=== PATIENT | female | born 1950 | race Caucasian/White ===

== ENCOUNTER 2017-03-31 16:40 | Emergency (ER) | payer MEDICARE, MEDICAID ==
[~2017-03-31] VITALS: Ht 172.7 cm; Wt 63.5 kg
[~2017-03-31 16:40] MED LIST: ASPI-1145 PO; ESOM20CA PO; NARA1TAB PO; NORCO5 PO
[2017-03-31 16:50] VITALS: BP_SYST 135
[2017-03-31] MEDS ORDERED: methylPREDNISolone SOD SUCC/PF 62.5 MG/ML VIAL IVP ONE (17:30)
[2017-03-31] MEDS ORDERED: ASPIRIN 325 MG TABLET PO ONE (17:30)
[2017-03-31] MEDS ORDERED: IPRATROPIUM BROM 0.5 MG/2.5 ML VIAL.NEB (ATROVENT) INH ONE (17:30)
[2017-03-31] MEDS ORDERED: MAGNESIUM SULFATE 50 ML IV ONE (17:30)
[2017-03-31] MEDS ORDERED: ALBUTEROL SULFATE 0.083% 2.5 MG/3 ML VIAL.NEB INH ONE (17:30)
[2017-03-31 17:40] LABS: MEAN CORPUSCULAR HEMOGLOBIN 28 pg (27-31); WHITE BLOOD COUNT (AUTO) 11.8 K/uL (4.8-10.8)
[2017-03-31 17:45] LABS: HEMATOCRIT 41.6 % (36-48); HEMOGLOBIN 13.1 g/dL (12.0-16.0); MEAN CORPUSCULAR HGB CONC 32 % (32-36); MEAN CORPUSCULAR VOLUME 89 fL (79.0-98.0); RED BLOOD CELL COUNT(AUTO) 4.69 MIL/uL (4.2-6.2); RED CELL DISTRIBUTION WIDTH 18.5 % (9.0-15.0)
[2017-03-31 17:46] LABS: CALCIUM 9.1 mg/dL (8.4-11.0); CREATININE 0.84 mg/dL (0.55-1.30); INR 0.9 (0.8-1.2); POTASSIUM 4.6 mmol/L (3.5-5.1); PROTHROMBIN TIME 10.2 SECS (9.5-12.5)
[2017-03-31 17:51] LABS: TOTAL BILIRUBIN 0.2 mg/dL (0.0-1.0); TOTAL PROTEIN, SERUM 7.9 g/dL (6.4-8.3)
[2017-03-31 17:53] LABS: PLATELET COUNT (AUTO) 799 K/uL (130-430)
[2017-03-31 18:40] VITALS: BP_SYST 123
[2017-03-31 18:40] LABS: ATYPICAL LYMPHOCYTES % 0 % (0-0); BAND % (MANUAL) 0 % (0-6); BASOPHILS % (MANUAL) 0 % (0-2); EOSINOPHILS % (MANUAL) 0 % (0-7); LYMPHOCYTES % (MANUAL) 8 % (20-46); MONOCYTES % (MANUAL) 2 % (0-11)
== END 2017-03-31 18:39 | disposition home or self-care (01) ==
LOC: SED 16:40
DX: R06.02 Shortness of breath (principal); F17.210 Nicotine dependence, cigarettes, uncomplicated; J45.909 Unspecified asthma, uncomplicated; K21.9 Gastro-esophageal reflux disease without esophagitis
CPT/HCPCS: 36415; 71010; 80053; 83880; 84484; 85007; 85027; 85610; 85730; 93005; 96365; 96375; 99285; J2930; J3475

== ENCOUNTER 2017-04-28 12:06 | Inpatient (IN) | payer MEDICAID, MEDICARE ==
[~2017-04-28] VITALS: Ht 172.7 cm; Wt 59.0 kg
[2017-04-28 12:06] VITALS: BP_SYST 135
[2017-04-28] MEDS ORDERED: PROCHLORPERAZINE EDISYLATE 10 MG/2 ML VIAL IVP ONE (12:30)
[2017-04-28] MEDS ORDERED: methylPREDNISolone SOD SUCC/PF 62.5 MG/ML VIAL IVP ONE (12:30)
[2017-04-28] MEDS ORDERED: ALBUTEROL SULFATE 0.083% 2.5 MG/3 ML VIAL.NEB INH ONE (12:30)
[2017-04-28] MEDS ORDERED: IPRATROPIUM BROM 0.5 MG/2.5 ML VIAL.NEB (ATROVENT) INH ONE (12:30)
[2017-04-28] MEDS ORDERED: NITROGLYCERIN 1 INCH (GM) OINT. TD ONE (12:30)
[2017-04-28] MEDS ORDERED: MAGNESIUM SULFATE 50 ML IV ONE (12:30)
[2017-04-28] MEDS ORDERED: ASPIRIN 325 MG TABLET PO ONE (12:30)
[2017-04-28] MEDS ORDERED: NACL 0.9% 1,000 ML IV ONE (12:30)
[2017-04-28 13:02] LABS: BASOPHILS # (AUTO) 0.4 K/uL (0.0-0.2); BASOPHILS % (AUTO) 4.3 % (0.0-2.0); EOSINOPHILS % (AUTO) 0.1 % (0.0-4.0); HEMATOCRIT 38.2 % (36-48); HEMOGLOBIN 12.3 g/dL (12.0-16.0); LYMPHOCYTES # (AUTO) 1.5 K/uL (1.0-5.5); LYMPHOCYTES % (AUTO) 18.6 % (20.5-51.5); MEAN CORPUSCULAR HEMOGLOBIN 30 pg (27-31); MEAN CORPUSCULAR HGB CONC 32 % (32-36); MEAN CORPUSCULAR VOLUME 94 fL (79.0-98.0); MONOCYTES # (AUTO) 0.6 K/uL (0.0-1.0); MONOCYTES % (AUTO) 7.8 % (1.7-9.3); NEUTROPHILS # (AUTO) 5.8 K/uL (1.8-7.7); NEUTROPHILS % (AUTO) 69.2 % (40.0-70.0); PLATELET COUNT (AUTO) 741 K/uL (130-430); RED BLOOD CELL COUNT(AUTO) 4.08 MIL/uL (4.2-6.2); RED CELL DISTRIBUTION WIDTH 20.7 % (9.0-15.0); WHITE BLOOD COUNT (AUTO) 8.3 K/uL (4.8-10.8)
[2017-04-28 13:16] LABS: CALCIUM 8.6 mg/dL (8.4-11.0); CREATININE 0.93 mg/dL (0.55-1.30); POTASSIUM 3.1 mmol/L (3.5-5.1)
[2017-04-28 13:19] LABS: INR 1.1 (0.8-1.2); PROTHROMBIN TIME 11.9 SECS (9.5-12.5)
[2017-04-28 13:20] LABS: ALBUMIN 3.1 g/dL (3.4-4.8); TOTAL BILIRUBIN 0.5 mg/dL (0.0-1.0); TOTAL PROTEIN, SERUM 7.8 g/dL (6.4-8.3)
[2017-04-28 13:20] LABS: ABG TOTAL HEMOGLOBIN 13.4 G/dL (12.0-18.0); BLOOD GAS BASE EXCESS -2.2 mmol/L (-3.0-3.0); BLOOD GAS COHb% 1.3 % (0.5-1.5); BLOOD GAS HHB 5.1 % (0.0-6.0); BLOOD O2Hb% 93.5 % (94.0-97.0)
[2017-04-28] MEDS ORDERED: TYC3 PO (14:20)
[2017-04-28] MEDS ORDERED: HYD500 PO (14:20)
[2017-04-28] MEDS ORDERED: TRAM50TA92 PO (14:20)
[2017-04-28] MEDS ORDERED: ALPR0.2583 PO (14:20)
[2017-04-28] MEDS ORDERED: IPRATROPIUM BROM 0.5 MG/2.5 ML VIAL.NEB (ATROVENT) INH PRN (14:30)
[2017-04-28] MEDS ORDERED: traMADol HCL HCL 50 MG TABLET (ULTRAM) PO PRN (14:30)
[2017-04-28] MEDS ORDERED: ACETAMINOPHEN PO SCH (14:30)
[2017-04-28] MEDS ORDERED: ALBUTEROL SULFATE 0.083% 2.5 MG/3 ML VIAL.NEB INH PRN (14:30)
[2017-04-28] MEDS ORDERED: KCL 20 mEq in NS 1000 mL 1,000 ML IV ONE (14:30)
[2017-04-28] MEDS ORDERED: HYDROCODONE PO SCH (14:30)
[2017-04-28] MEDS: IPRATROPIUM BROM 0.5 MG/2.5 ML VIAL.NEB (ATROVENT) INH SCH ×3 (15:00→23:00)
[2017-04-28] MEDS: ALBUTEROL SULFATE 0.083% 2.5 MG/3 ML VIAL.NEB INH SCH ×3 (15:00→23:00)
[2017-04-28 15:36] VITALS: BP_SYST 113
[2017-04-28 16:59] VITALS: BP_SYST 113
[2017-04-28] MEDS: PIPERACILLIN/TAZO 3.375/DEX-IS 50 ML IV SCH ×2 (18:23→23:13)
[2017-04-28 19:30] VITALS: BP_SYST 124
[2017-04-28] MEDS: methylPREDNISolone SOD SUCC/PF 62.5 MG/ML VIAL IVP SCH (21:03)
[2017-04-28] MEDS: guaiFENesin 200 MG/10 ML UDC PO PRN (21:13)
[2017-04-28] MEDS: HYDROcodone/ACETAMIN 5-325 MG TAB (NORCO/ VICODIN) PO PRN (21:41)
[2017-04-28] MEDS: ALPRAZolam 0.25 MG TABLET PO SCH (22:12)
[2017-04-29 00:54] VITALS: BP_SYST 113
[2017-04-29] MEDS: IPRATROPIUM BROM 0.5 MG/2.5 ML VIAL.NEB (ATROVENT) INH SCH ×6 (03:00→23:00)
[2017-04-29] MEDS: ALBUTEROL SULFATE 0.083% 2.5 MG/3 ML VIAL.NEB INH SCH ×6 (03:00→23:00)
[2017-04-29 04:33] VITALS: BP_SYST 121
[2017-04-29] MEDS: PIPERACILLIN/TAZO 3.375/DEX-IS 50 ML IV SCH (05:09)
[2017-04-29] MEDS: methylPREDNISolone SOD SUCC/PF 62.5 MG/ML VIAL IVP SCH ×3 (05:09→21:26)
[2017-04-29] MEDS: ALPRAZolam 0.25 MG TABLET PO SCH ×3 (06:01→21:26)
[2017-04-29] MEDS: guaiFENesin 200 MG/10 ML UDC PO PRN ×2 (06:02→11:05)
[2017-04-29 07:01] LABS: ALBUMIN 2.5 g/dL (3.4-4.8); CALCIUM 7.9 mg/dL (8.4-11.0); CREATININE 0.82 mg/dL (0.55-1.30); POTASSIUM 3.4 mmol/L (3.5-5.1); TOTAL BILIRUBIN 0.2 mg/dL (0.0-1.0); TOTAL PROTEIN, SERUM 6.7 g/dL (6.4-8.3)
[2017-04-29 07:02] LABS: BASOPHILS % (AUTO) 0.2 % (0.0-2.0); HEMATOCRIT 33.6 % (36-48); HEMOGLOBIN 10.9 g/dL (12.0-16.0); LYMPHOCYTES # (AUTO) 0.4 K/uL (1.0-5.5); LYMPHOCYTES % (AUTO) 7.1 % (20.5-51.5); MEAN CORPUSCULAR HEMOGLOBIN 31 pg (27-31); MEAN CORPUSCULAR HGB CONC 32 % (32-36); MEAN CORPUSCULAR VOLUME 96 fL (79.0-98.0); MONOCYTES # (AUTO) 0.2 K/uL (0.0-1.0); MONOCYTES % (AUTO) 3.1 % (1.7-9.3); NEUTROPHILS # (AUTO) 4.7 K/uL (1.8-7.7); NEUTROPHILS % (AUTO) 89.6 % (40.0-70.0); PLATELET COUNT (AUTO) 630 K/uL (130-430); RED BLOOD CELL COUNT(AUTO) 3.51 MIL/uL (4.2-6.2); RED CELL DISTRIBUTION WIDTH 20.5 % (9.0-15.0); WHITE BLOOD COUNT (AUTO) 5.3 K/uL (4.8-10.8)
[2017-04-29 08:00] VITALS: BP_SYST 104
[2017-04-29] MEDS: ENOXAPARIN SODIUM 40 MG/0.4 ML SYRINGE SUBCUT SCH (08:45)
[2017-04-29] MEDS: HYDROXYUREA 500 MG CAPSULE (HYDREA) PO SCH (08:45)
[2017-04-29] MEDS: PANTOPRAZOLE SODIUM 40 MG TAB PO SCH (08:47)
[2017-04-29] MEDS ORDERED: ESOMEPRAZOLE MAG TRIHYDRATE 20 MG PO SCH (09:00)
[2017-04-29 09:56] LABS: BLOOD GAS PH 7.506 (7.350-7.450)
[2017-04-29] MEDS: POTASSIUM CHLORIDE 20 MEQ TAB.PRT.SR PO SCH (10:06)
[2017-04-29] MEDS: cefTRIAXone 1 GM in D5W 50 ML IV SCH (10:06)
[2017-04-29] MEDS: HYDROcodone/ACETAMIN 5-325 MG TAB (NORCO/ VICODIN) PO PRN ×2 (11:05→20:18)
[2017-04-29 12:26] VITALS: BP_SYST 130
[2017-04-29] MEDS: ONDANSETRON HCL 4 MG/2 ML VIAL IVP PRN ×2 (15:11→22:00)
[2017-04-29 16:04] VITALS: BP_SYST 145
[2017-04-29 19:30] VITALS: BP_SYST 144
[2017-04-30] VITALS (7 sets, daily range): BP systolic 114–137
[2017-04-30] MEDS: IPRATROPIUM BROM 0.5 MG/2.5 ML VIAL.NEB (ATROVENT) INH SCH ×6 (03:00→23:00)
[2017-04-30] MEDS: ALBUTEROL SULFATE 0.083% 2.5 MG/3 ML VIAL.NEB INH SCH ×6 (03:00→23:00)
[2017-04-30] MEDS: ALPRAZolam 0.25 MG TABLET PO SCH (05:46)
[2017-04-30] MEDS: methylPREDNISolone SOD SUCC/PF 62.5 MG/ML VIAL IVP SCH ×3 (05:46→21:14)
[2017-04-30 07:13] LABS: BASOPHILS % (AUTO) 0.3 % (0.0-2.0); HEMATOCRIT 35.1 % (36-48); HEMOGLOBIN 11.3 g/dL (12.0-16.0); LYMPHOCYTES # (AUTO) 0.4 K/uL (1.0-5.5); LYMPHOCYTES % (AUTO) 3.4 % (20.5-51.5); MEAN CORPUSCULAR HEMOGLOBIN 31 pg (27-31); MEAN CORPUSCULAR HGB CONC 32 % (32-36); MEAN CORPUSCULAR VOLUME 95 fL (79.0-98.0); MONOCYTES # (AUTO) 0.2 K/uL (0.0-1.0); MONOCYTES % (AUTO) 2.1 % (1.7-9.3); NEUTROPHILS # (AUTO) 11.1 K/uL (1.8-7.7); NEUTROPHILS % (AUTO) 94.2 % (40.0-70.0); RED BLOOD CELL COUNT(AUTO) 3.71 MIL/uL (4.2-6.2); RED CELL DISTRIBUTION WIDTH 20.1 % (9.0-15.0); WHITE BLOOD COUNT (AUTO) 11.8 K/uL (4.8-10.8)
[2017-04-30 07:30] LABS: CALCIUM 8.8 mg/dL (8.4-11.0); CREATININE 0.76 mg/dL (0.55-1.30); POTASSIUM 3.9 mmol/L (3.5-5.1)
[2017-04-30 07:39] LABS: PLATELET COUNT (AUTO) 890 K/uL (130-430)
[2017-04-30] MEDS ORDERED: ALPRAZolam 0.25 MG TABLET PO PRN (08:30)
[2017-04-30] MEDS: PANTOPRAZOLE SODIUM 40 MG TAB PO SCH ×2 (09:00→09:03)
[2017-04-30] MEDS: HYDROXYUREA 500 MG CAPSULE (HYDREA) PO SCH (09:03)
[2017-04-30] MEDS: POTASSIUM CHLORIDE 20 MEQ TAB.PRT.SR PO SCH (09:03)
[2017-04-30] MEDS: cefTRIAXone 1 GM in D5W 50 ML IV SCH (09:04)
[2017-04-30] MEDS: ENOXAPARIN SODIUM 40 MG/0.4 ML SYRINGE SUBCUT SCH (09:04)
[2017-04-30] MEDS: HYDROcodone/ACETAMIN 5-325 MG TAB (NORCO/ VICODIN) PO PRN ×2 (09:19→21:32)
[2017-04-30] MEDS ORDERED: CALCIUM CARBONATE 500 MG/ TAB.CHEW PO PRN (10:30)
[2017-04-30] MEDS: Effexor XR 37.5 MG PO SCH (12:36)
[2017-04-30] MEDS: ONDANSETRON HCL 4 MG/2 ML VIAL IVP PRN (16:39)
[2017-04-30] MEDS: CALCIUM CARBONATE 500 MG/ TAB.CHEW PO PRN (18:05)
[2017-05-01] MEDS: ALBUTEROL SULFATE 0.083% 2.5 MG/3 ML VIAL.NEB INH SCH ×3 (03:00→11:00)
[2017-05-01] MEDS: IPRATROPIUM BROM 0.5 MG/2.5 ML VIAL.NEB (ATROVENT) INH SCH ×3 (03:00→11:00)
[2017-05-01 04:10] VITALS: BP_SYST 128
[2017-05-01] MEDS: methylPREDNISolone SOD SUCC/PF 62.5 MG/ML VIAL IVP SCH (05:06)
[2017-05-01] MEDS: HYDROcodone/ACETAMIN 5-325 MG TAB (NORCO/ VICODIN) PO PRN (05:13)
[2017-05-01] MEDS: CALCIUM CARBONATE 500 MG/ TAB.CHEW PO PRN (05:29)
[2017-05-01] MEDS: PANTOPRAZOLE SODIUM 40 MG TAB PO SCH ×2 (07:38→08:30)
[2017-05-01 07:39] LABS: HEMATOCRIT 34.3 % (36-48); HEMOGLOBIN 11.1 g/dL (12.0-16.0); MEAN CORPUSCULAR HEMOGLOBIN 31 pg (27-31); MEAN CORPUSCULAR HGB CONC 32 % (32-36); MEAN CORPUSCULAR VOLUME 96 fL (79.0-98.0); RED BLOOD CELL COUNT(AUTO) 3.58 MIL/uL (4.2-6.2); RED CELL DISTRIBUTION WIDTH 20.3 % (9.0-15.0); WHITE BLOOD COUNT (AUTO) 9.9 K/uL (4.8-10.8)
[2017-05-01 07:42] LABS: CREATININE 0.8 mg/dL (0.55-1.30); PLATELET COUNT (AUTO) 893 K/uL (130-430); POTASSIUM 5.1 mmol/L (3.5-5.1)
[2017-05-01 08:00] VITALS: BP_SYST 139
[2017-05-01 08:10] LABS: BAND % (MANUAL) 0 % (0-6); BASOPHILS % (MANUAL) 0 % (0-2); EOSINOPHILS % (MANUAL) 0 % (0-7); LYMPHOCYTES % (MANUAL) 3 % (20-46); MONOCYTES % (MANUAL) 2 % (0-11)
[2017-05-01] MEDS: cefTRIAXone 1 GM in D5W 50 ML IV SCH (08:30)
[2017-05-01] MEDS: HYDROXYUREA 500 MG CAPSULE (HYDREA) PO SCH (08:30)
[2017-05-01] MEDS: ENOXAPARIN SODIUM 40 MG/0.4 ML SYRINGE SUBCUT SCH (08:30)
[2017-05-01] MEDS: POTASSIUM CHLORIDE 20 MEQ TAB.PRT.SR PO SCH (08:30)
[2017-05-01] MEDS: Effexor XR 37.5 MG PO SCH (08:31)
[2017-05-01 09:15] VITALS: BP_SYST 139
== END 2017-05-01 11:00 | disposition home or self-care (01) | DRG 243 ==
LOC: SED 12:06 → STU 14:24 → SMU 04-29 12:24
PROVIDERS: ADMIT Internal Medicine; ATTEND Internal Medicine
DX: K21.9 Gastro-esophageal reflux disease without esophagitis (principal); E87.2 Acidosis; E87.3 Alkalosis; J44.1 Chronic obstructive pulmonary disease with (acute) exacerbation; D69.6 Thrombocytopenia, unspecified; E87.1 Hypo-osmolality and hyponatremia; F41.9 Anxiety disorder, unspecified; R59.0 Localized enlarged lymph nodes; F17.200 Nicotine dependence, unspecified, uncomplicated; E87.6 Hypokalemia; Z90.49 Acquired absence of other specified parts of digestive tract; Z71.6 Tobacco abuse counseling; Z79.899 Other long term (current) drug therapy; Z85.6 Personal history of leukemia
CPT/HCPCS: 36415; 36600; 71010; 80048; 80053; 82803-TC; 83690-TC; 83735-TC; 84484; 85007; 85025; 85027; 85610-TC; 85730-TC; 93005; 94640; 94760; 96365; 96375; 99285; J0696; J0780; J1650; J2405; J2543; J2930; J3475; J3480; J7030; J7050; J7060

== ENCOUNTER 2017-05-14 10:17 | Inpatient (IN) | payer MEDICAID, MEDICARE ==
[~2017-05-14] VITALS: Ht 172.7 cm; Wt 59.0 kg
[2017-05-14 10:17] VITALS: BP_SYST 124
[~2017-05-14 10:17] MED LIST changes: +ALPR0.2583 PO; -ASPI-1145 PO; +HYD500 PO; -NORCO5 PO; +TRAM50TA92 PO; +TYC3 PO
[2017-05-14] MEDS ORDERED: ONDANSETRON HCL 4 MG/2 ML VIAL IVP ONE (10:45)
[2017-05-14] MEDS ORDERED: NACL 0.9% 1,000 ML IV ONE (10:45)
[2017-05-14 10:55] LABS: BASOPHILS # (AUTO) 0.1 K/uL (0.0-0.2); BASOPHILS % (AUTO) 1.2 % (0.0-2.0); EOSINOPHILS % (AUTO) 0.1 % (0.0-4.0); HEMATOCRIT 36.2 % (36-48); HEMOGLOBIN 11.6 g/dL (12.0-16.0); LYMPHOCYTES # (AUTO) 0.7 K/uL (1.0-5.5); LYMPHOCYTES % (AUTO) 8.2 % (20.5-51.5); MEAN CORPUSCULAR HEMOGLOBIN 30 pg (27-31); MEAN CORPUSCULAR HGB CONC 32 % (32-36); MEAN CORPUSCULAR VOLUME 94 fL (79.0-98.0); MONOCYTES # (AUTO) 0.5 K/uL (0.0-1.0); MONOCYTES % (AUTO) 5.8 % (1.7-9.3); NEUTROPHILS # (AUTO) 6.9 K/uL (1.8-7.7); NEUTROPHILS % (AUTO) 84.7 % (40.0-70.0); RED BLOOD CELL COUNT(AUTO) 3.86 MIL/uL (4.2-6.2); RED CELL DISTRIBUTION WIDTH 19.9 % (9.0-15.0); WHITE BLOOD COUNT (AUTO) 8.2 K/uL (4.8-10.8)
[2017-05-14 10:59] LABS: PLATELET COUNT (AUTO) 756 K/uL (130-430)
[2017-05-14 11:00] LABS: CALCIUM 8.9 mg/dL (8.4-11.0); CREATININE 0.76 mg/dL (0.55-1.30); POTASSIUM 3.2 mmol/L (3.5-5.1)
[2017-05-14 11:05] LABS: INR 1.1 (0.8-1.2); PROTHROMBIN TIME 12.2 SECS (9.5-12.5)
[2017-05-14 11:09] LABS: ALBUMIN 2.7 g/dL (3.4-4.8); TOTAL BILIRUBIN 0.7 mg/dL (0.0-1.0); TOTAL PROTEIN, SERUM 7.3 g/dL (6.4-8.3)
[2017-05-14] MEDS ORDERED: MORPHINE 4 MG/ML INJ. SYRINGE IVP ONE (11:15)
[2017-05-14] MEDS ORDERED: PROPOFOL 200MG/ 20ML VIAL (DIPRIVAN) IV ONE (12:31)
[2017-05-14 13:07] LABS: BILIRUBIN,URINE 3+ (NEGATIVE); CLARITY/URINE CLEAR (CLEAR); COLOR,URINE YELLOW (YELLOW); GLUCOSE,URINE NEGATIVE (NEGATIVE); KETONES,URINE 3+ (NEGATIVE); LEUKOCYTE ESTERASE ,URINE NEGATIVE (NEGATIVE); NITRITE, URINE NEGATIVE (NEGATIVE); PH,URINE 5.5 (5.0-8.0); PROTEIN URINE 1+ (NEGATIVE)
[2017-05-14 13:13] LABS: BLOOD, URINE TRACE (NEGATIVE)
[2017-05-14 13:18] LABS: BACTERIA,URINE FEW /HPF (None Seen); COARSE GRANULAR CASTS,URINE 0-3 /LPF (None Seen); MUCUS,URINE 3+ /LPF (None Seen); RBC,URINE 0-3 /HPF (0-3); WBC,URINE 0-3 /HPF (0-3)
[2017-05-14 13:28] VITALS: BP_SYST 139
[2017-05-14] MEDS ORDERED: POTASSIUM CHLORIDE 20 MEQ TAB.PRT.SR PO ONE (16:15)
[2017-05-14] MEDS ORDERED: ACETAMINOPHEN 325 MG TABLET PO PRN (16:30)
[2017-05-14 16:42] VITALS: BP_SYST 100
[2017-05-14] MEDS: ONDANSETRON HCL 4 MG/2 ML VIAL IVP PRN (16:45)
[2017-05-14] MEDS: MORPHINE 4 MG/ML INJ. SYRINGE IVP PRN ×2 (16:46→20:43)
[2017-05-14] MEDS ORDERED: cefTRIAXone 1 GM IVPB PREMIX 50 ML IV SCH (18:00)
[2017-05-14] MEDS: NACL 0.9% 1,000 ML IV SCH (18:05)
[2017-05-14] MEDS: PIPERACILLIN/TAZO 3.375/DEX-IS 50 ML IV SCH (18:45)
[2017-05-14] MEDS: IPRATROPIUM/ALBUTEROL SULFATE 3 ML AMPUL.NEB INH SCH ×2 (19:21→23:00)
[2017-05-14] MEDS: AZITHROMYCIN 500 MG in NS 250 ML IV SCH (19:38)
[2017-05-14 20:00] VITALS: BP_SYST 109
[2017-05-14] MEDS ORDERED: ACETAMINOPHEN/CODEINE 300 MG-30 MG TABLET PO SCH (20:15)
[2017-05-14] MEDS ORDERED: ESOMEPRAZOLE MAG TRIHYDRATE 20 MG PO SCH (20:15)
[2017-05-14] MEDS: METOCLOPRAMIDE HCL 10 MG/2 ML VIAL IVP SCH (20:42)
[2017-05-14] MEDS: FAMOTIDINE PF 20 MG/2 ML VIAL IVP SCH (20:42)
[2017-05-14] MEDS: HYDROXYUREA 500 MG CAPSULE (HYDREA) PO SCH (20:42)
[2017-05-14] MEDS: guaiFENesin ER 600 MG TAB PO SCH (20:42)
[2017-05-14 21:58] VITALS: BP_SYST 109
[2017-05-14 23:45] VITALS: BP_SYST 130
[2017-05-15] MEDS: PIPERACILLIN/TAZO 3.375/DEX-IS 50 ML IV SCH ×4 (00:52→17:25)
[2017-05-15] MEDS: IPRATROPIUM/ALBUTEROL SULFATE 3 ML AMPUL.NEB INH SCH ×2 (02:46→07:00)
[2017-05-15 04:22] VITALS: BP_SYST 114
[2017-05-15] MEDS: NACL 0.9% 1,000 ML IV SCH ×3 (05:24→12:50)
[2017-05-15] MEDS: ACETAMINOPHEN/CODEINE 300 MG-30 MG TABLET PO PRN (05:28)
[2017-05-15] MEDS: METOCLOPRAMIDE HCL 10 MG/2 ML VIAL IVP SCH ×4 (06:30→20:04)
[2017-05-15 06:46] LABS: ALBUMIN 2.2 g/dL (3.4-4.8); CALCIUM 7.6 mg/dL (8.4-11.0); CREATININE 0.69 mg/dL (0.55-1.30); POTASSIUM 3.2 mmol/L (3.5-5.1); TOTAL BILIRUBIN 0.3 mg/dL (0.0-1.0)
[2017-05-15 07:01] LABS: BASOPHILS % (AUTO) 0.5 % (0.0-2.0); EOSINOPHILS % (AUTO) 0.6 % (0.0-4.0); HEMATOCRIT 29.1 % (36-48); HEMOGLOBIN 9.4 g/dL (12.0-16.0); LYMPHOCYTES # (AUTO) 0.6 K/uL (1.0-5.5); LYMPHOCYTES % (AUTO) 10.2 % (20.5-51.5); MEAN CORPUSCULAR HEMOGLOBIN 31 pg (27-31); MEAN CORPUSCULAR HGB CONC 32 % (32-36); MEAN CORPUSCULAR VOLUME 95 fL (79.0-98.0); MONOCYTES # (AUTO) 0.4 K/uL (0.0-1.0); MONOCYTES % (AUTO) 7.2 % (1.7-9.3); NEUTROPHILS # (AUTO) 5.2 K/uL (1.8-7.7); NEUTROPHILS % (AUTO) 81.5 % (40.0-70.0); RED BLOOD CELL COUNT(AUTO) 3.06 MIL/uL (4.2-6.2); RED CELL DISTRIBUTION WIDTH 20.1 % (9.0-15.0); WHITE BLOOD COUNT (AUTO) 6.2 K/uL (4.8-10.8)
[2017-05-15 07:39] LABS: PLATELET COUNT (AUTO) 586 K/uL (130-430)
[2017-05-15 08:00] VITALS: BP_SYST 108
[2017-05-15] MEDS ORDERED: POTASSIUM CHLORIDE 40 MEQ, MAGNESIUM SULFATE 4 GM in 0.45% NS 250 ML IV ONE (08:30)
[2017-05-15] MEDS: HYDROXYUREA 500 MG CAPSULE (HYDREA) PO SCH (08:49)
[2017-05-15] MEDS: guaiFENesin ER 600 MG TAB PO SCH ×3 (08:49→20:04)
[2017-05-15] MEDS: FAMOTIDINE PF 20 MG/2 ML VIAL IVP SCH ×2 (08:49→20:04)
[2017-05-15] MEDS: ONDANSETRON HCL 4 MG/2 ML VIAL IVP PRN ×2 (08:55→17:32)
[2017-05-15] MEDS: MORPHINE 4 MG/ML INJ. SYRINGE IVP PRN ×3 (08:56→22:34)
[2017-05-15] MEDS ORDERED: PANTOPRAZOLE SODIUM 40 MG TAB PO SCH (09:00)
[2017-05-15] MEDS ORDERED: POTASSIUM CHLORIDE 20 MEQ TAB.PRT.SR PO ONE (11:45)
[2017-05-15] MEDS ORDERED: ASPIRIN 325 MG TABLET PO ONE (12:00)
[2017-05-15 12:28] VITALS: BP_SYST 113
[2017-05-15] MEDS ORDERED: IOHEXOL 100 ML IV ONE (13:40)
[2017-05-15 16:08] VITALS: BP_SYST 120
[2017-05-15] MEDS: IPRATROPIUM BROM 0.5 MG/2.5 ML VIAL.NEB (ATROVENT) INH SCH ×2 (17:52→19:00)
[2017-05-15] MEDS: LEVALBUTEROL HCL 0.63 MG/3 ML VIAL.NEB INH SCH ×2 (17:53→19:00)
[2017-05-15] MEDS: AZITHROMYCIN 500 MG in NS 250 ML IV SCH (18:38)
[2017-05-15 20:15] VITALS: BP_SYST 108
[2017-05-16 00:19] VITALS: BP_SYST 92
[2017-05-16] MEDS: LEVALBUTEROL HCL 0.63 MG/3 ML VIAL.NEB INH SCH ×4 (01:00→19:00)
[2017-05-16] MEDS: IPRATROPIUM BROM 0.5 MG/2.5 ML VIAL.NEB (ATROVENT) INH SCH ×4 (01:00→19:00)
[2017-05-16] MEDS: PIPERACILLIN/TAZO 3.375/DEX-IS 50 ML IV SCH ×4 (01:08→17:16)
[2017-05-16 04:06] VITALS: BP_SYST 122
[2017-05-16] MEDS: METOCLOPRAMIDE HCL 10 MG/2 ML VIAL IVP SCH ×4 (06:39→21:20)
[2017-05-16] MEDS: MORPHINE 4 MG/ML INJ. SYRINGE IVP PRN ×2 (06:43→11:48)
[2017-05-16 06:51] LABS: CALCIUM 7.8 mg/dL (8.4-11.0); CREATININE 0.75 mg/dL (0.55-1.30); POTASSIUM 3.4 mmol/L (3.5-5.1)
[2017-05-16 07:00] LABS: BASOPHILS % (AUTO) 0.9 % (0.0-2.0); EOSINOPHILS # (AUTO) 0.1 K/uL (0.0-0.4); EOSINOPHILS % (AUTO) 1.1 % (0.0-4.0); HEMATOCRIT 30.9 % (36-48); HEMOGLOBIN 9.9 g/dL (12.0-16.0); LYMPHOCYTES # (AUTO) 0.8 K/uL (1.0-5.5); LYMPHOCYTES % (AUTO) 13.9 % (20.5-51.5); MEAN CORPUSCULAR HEMOGLOBIN 30 pg (27-31); MEAN CORPUSCULAR HGB CONC 32 % (32-36); MEAN CORPUSCULAR VOLUME 95 fL (79.0-98.0); MONOCYTES # (AUTO) 0.3 K/uL (0.0-1.0); NEUTROPHILS # (AUTO) 4.3 K/uL (1.8-7.7); NEUTROPHILS % (AUTO) 79.1 % (40.0-70.0); RED BLOOD CELL COUNT(AUTO) 3.25 MIL/uL (4.2-6.2); RED CELL DISTRIBUTION WIDTH 19.1 % (9.0-15.0); WHITE BLOOD COUNT (AUTO) 5.5 K/uL (4.8-10.8)
[2017-05-16 08:30] VITALS: BP_SYST 129
[2017-05-16 08:50] LABS: PLATELET COUNT (AUTO) 645 K/uL (130-430)
[2017-05-16] MEDS: guaiFENesin ER 600 MG TAB PO SCH ×3 (09:00→21:00)
[2017-05-16] MEDS: FAMOTIDINE PF 20 MG/2 ML VIAL IVP SCH ×2 (09:24→21:18)
[2017-05-16] MEDS: ASPIRIN 325 MG TABLET PO SCH (09:24)
[2017-05-16] MEDS: ATORVASTATIN 20 MG TABLET PO SCH (09:25)
[2017-05-16] MEDS: NACL 0.9% 1,000 ML IV SCH ×2 (09:32→19:57)
[2017-05-16] MEDS: HYDROXYUREA 500 MG CAPSULE (HYDREA) PO SCH (10:20)
[2017-05-16 13:02] VITALS: BP_SYST 150
[2017-05-16] MEDS ORDERED: HYDROmorphone 2 MG/ML VIAL IVP PRN (16:00)
[2017-05-16 16:55] VITALS: BP_SYST 141
[2017-05-16] MEDS: ONDANSETRON HCL 4 MG/2 ML VIAL IVP PRN (18:00)
[2017-05-16] MEDS: AZITHROMYCIN 500 MG in NS 250 ML IV SCH (19:59)
[2017-05-16 20:00] VITALS: BP_SYST 152
[2017-05-16] MEDS: TEMAZEPAM 15 MG CAPSULE PO SCH (21:20)
[2017-05-17] VITALS (16 sets, daily range): BP systolic 109–168
[2017-05-17] MEDS: LEVALBUTEROL HCL 0.63 MG/3 ML VIAL.NEB INH SCH ×4 (00:06→18:17)
[2017-05-17] MEDS: IPRATROPIUM BROM 0.5 MG/2.5 ML VIAL.NEB (ATROVENT) INH SCH ×4 (00:06→18:16)
[2017-05-17] MEDS: PIPERACILLIN/TAZO 3.375/DEX-IS 50 ML IV SCH ×4 (00:15→17:41)
[2017-05-17] MEDS: MORPHINE 4 MG/ML INJ. SYRINGE IVP PRN ×3 (05:21→13:27)
[2017-05-17] MEDS: METOCLOPRAMIDE HCL 10 MG/2 ML VIAL IVP SCH ×4 (07:00→20:46)
[2017-05-17] MEDS: FAMOTIDINE PF 20 MG/2 ML VIAL IVP SCH ×2 (08:29→20:46)
[2017-05-17] MEDS: guaiFENesin ER 600 MG TAB PO SCH ×2 (09:00→20:47)
[2017-05-17] MEDS: ASPIRIN 325 MG TABLET PO SCH (09:00)
[2017-05-17] MEDS: ATORVASTATIN 20 MG TABLET PO SCH (09:00)
[2017-05-17] MEDS ORDERED: BUPIVACAINE /EPINEPHRINE/PF 0.5% 30 ML VIAL INJ ONE (09:31)
[2017-05-17] MEDS ORDERED: MIDAZOLAM HCL 5 MG/5 ML VIAL IVP ONE (09:31)
[2017-05-17] MEDS ORDERED: fentaNYL CITRATE/PF 100 MCG/2 ML AMP IVP ONE (09:31)
[2017-05-17] MEDS ORDERED: ONDANSETRON HCL 4 MG/2 ML VIAL IVP ONE (09:31)
[2017-05-17] MEDS ORDERED: ROCURONIUM BROMIDE 10 MG/ML (ZEMURON) IV ONE (09:31)
[2017-05-17] MEDS ORDERED: PROPOFOL 200MG/ 20ML VIAL (DIPRIVAN) IV ONE (09:31)
[2017-05-17] MEDS ORDERED: LR 1,000 ML IV.SOLN IV ONE (09:31)
[2017-05-17] MEDS ORDERED: CEFAZOLIN 2 GM IVPB PREMIX 50 ML IV ONE (09:31)
[2017-05-17] MEDS ORDERED: NS IRRIG SOLN 1000 ML IR ONE (09:31)
[2017-05-17] MEDS ORDERED: NEOSTIGMINE METHYLSULFATE 1 MG/ML, 10 ML VIAL IVP ONE (09:31)
[2017-05-17] MEDS ORDERED: SEVOFLURANE 15 MIN GAS INH ONE (09:31)
[2017-05-17] MEDS ORDERED: GLYCOPYRROLATE 0.2 MG/ML VIAL IJ ONE (09:31)
[2017-05-17] MEDS: NACL 0.9% 1,000 ML IV SCH (09:40)
[2017-05-17] MEDS ORDERED: LR 1,000 ML IV SCH (10:56)
[2017-05-17] MEDS ORDERED: MORPHINE 4 MG/ML INJ. SYRINGE IVP PRN (11:00)
[2017-05-17] MEDS: ONDANSETRON HCL 4 MG/2 ML VIAL IVP PRN (13:27)
[2017-05-17] MEDS ORDERED: IPRATROPIUM/ALBUTEROL SULFATE 3 ML AMPUL.NEB INH PRN (17:45)
[2017-05-17] MEDS ORDERED: COMMUNICATION ORDER XX SCH (18:15)
[2017-05-17 18:51] LABS: CREATININE 0.75 mg/dL (0.55-1.30)
[2017-05-17] MEDS ORDERED: POTASSIUM CHLORIDE 40 MEQ, LIDOCAINE JECT 2% PF 100 MG 50 MG in NS 250 ML IV ONE (19:45)
[2017-05-17] MEDS: AZITHROMYCIN 500 MG in NS 250 ML IV SCH (20:24)
[2017-05-17] MEDS: D5LR 1,000 ML IV SCH (20:30)
[2017-05-17] MEDS ORDERED: KCL 40 mEq in 100 mL (PREMIX) 100 ML IV ONE (20:34)
[2017-05-17] MEDS ORDERED: LIDOCAINE JECT 2% PF 100 MG/5ML SYRINGE ONE (20:35)
[2017-05-17] MEDS: TEMAZEPAM 15 MG CAPSULE PO SCH (20:46)
[2017-05-17 23:24] LABS: CREATININE CLEARANCE,URINE 57.7 ml/min (80-120); CREATININE,URINE 111.4 MG/DL (30-125)
[2017-05-18] VITALS (24 sets, daily range): BP systolic 112–157
[2017-05-18] MEDS: MORPHINE 4 MG/ML INJ. SYRINGE IVP PRN ×7 (00:15→21:26)
[2017-05-18] MEDS: PIPERACILLIN/TAZO 3.375/DEX-IS 50 ML IV SCH ×5 (00:45→23:50)
[2017-05-18] MEDS: IPRATROPIUM BROM 0.5 MG/2.5 ML VIAL.NEB (ATROVENT) INH SCH ×3 (01:04→19:35)
[2017-05-18] MEDS: LEVALBUTEROL HCL 0.63 MG/3 ML VIAL.NEB INH SCH ×3 (01:05→19:35)
[2017-05-18 05:16] LABS: BASOPHILS % (AUTO) 0.1 % (0.0-2.0); HEMATOCRIT 29.3 % (36-48); HEMOGLOBIN 9.8 g/dL (12.0-16.0); LYMPHOCYTES # (AUTO) 0.5 K/uL (1.0-5.5); LYMPHOCYTES % (AUTO) 5.5 % (20.5-51.5); MEAN CORPUSCULAR HEMOGLOBIN 32 pg (27-31); MEAN CORPUSCULAR HGB CONC 34 % (32-36); MEAN CORPUSCULAR VOLUME 94 fL (79.0-98.0); MONOCYTES # (AUTO) 0.5 K/uL (0.0-1.0); MONOCYTES % (AUTO) 6.4 % (1.7-9.3); NEUTROPHILS # (AUTO) 7.4 K/uL (1.8-7.7); RED BLOOD CELL COUNT(AUTO) 3.11 MIL/uL (4.2-6.2); RED CELL DISTRIBUTION WIDTH 19.8 % (9.0-15.0); WHITE BLOOD COUNT (AUTO) 8.4 K/uL (4.8-10.8)
[2017-05-18 05:18] LABS: ALBUMIN 2.2 g/dL (3.4-4.8); CALCIUM 8.1 mg/dL (8.4-11.0); CREATININE 0.72 mg/dL (0.55-1.30); POTASSIUM 3.6 mmol/L (3.5-5.1); TOTAL BILIRUBIN 0.2 mg/dL (0.0-1.0)
[2017-05-18] MEDS: D5LR 1,000 ML IV SCH (05:45)
[2017-05-18 06:36] LABS: PLATELET COUNT (AUTO) 753 K/uL (130-430)
[2017-05-18] MEDS: METOCLOPRAMIDE HCL 10 MG/2 ML VIAL IVP SCH ×4 (07:34→21:14)
[2017-05-18] MEDS: ONDANSETRON HCL 4 MG/2 ML VIAL IVP PRN (07:35)
[2017-05-18] MEDS ORDERED: HYDROcodone/ACETAMIN 5-325 MG TAB (NORCO/ VICODIN) PO PRN (08:45)
[2017-05-18] MEDS: ASPIRIN 325 MG TABLET PO SCH (09:53)
[2017-05-18] MEDS: FAMOTIDINE PF 20 MG/2 ML VIAL IVP SCH ×2 (09:55→21:14)
[2017-05-18] MEDS: ATORVASTATIN 20 MG TABLET PO SCH (09:55)
[2017-05-19] VITALS (24 sets, daily range): BP systolic 90–162
[2017-05-19] MEDS: IPRATROPIUM BROM 0.5 MG/2.5 ML VIAL.NEB (ATROVENT) INH SCH ×2 (00:07→07:00)
[2017-05-19] MEDS: LEVALBUTEROL HCL 0.63 MG/3 ML VIAL.NEB INH SCH ×2 (00:07→07:00)
[2017-05-19] MEDS: MORPHINE 4 MG/ML INJ. SYRINGE IVP PRN ×7 (03:22→20:23)
[2017-05-19] MEDS: PIPERACILLIN/TAZO 3.375/DEX-IS 50 ML IV SCH (05:42)
[2017-05-19] MEDS: METOCLOPRAMIDE HCL 10 MG/2 ML VIAL IVP SCH ×4 (06:01→22:19)
[2017-05-19 06:34] LABS: BASOPHILS % (AUTO) 0.6 % (0.0-2.0); EOSINOPHILS # (AUTO) 0.1 K/uL (0.0-0.4); EOSINOPHILS % (AUTO) 0.9 % (0.0-4.0); HEMATOCRIT 29.1 % (36-48); HEMOGLOBIN 9.4 g/dL (12.0-16.0); LYMPHOCYTES # (AUTO) 0.7 K/uL (1.0-5.5); LYMPHOCYTES % (AUTO) 11.7 % (20.5-51.5); MEAN CORPUSCULAR HEMOGLOBIN 31 pg (27-31); MEAN CORPUSCULAR HGB CONC 32 % (32-36); MEAN CORPUSCULAR VOLUME 95 fL (79.0-98.0); MONOCYTES # (AUTO) 0.4 K/uL (0.0-1.0); MONOCYTES % (AUTO) 7.4 % (1.7-9.3); NEUTROPHILS # (AUTO) 4.5 K/uL (1.8-7.7); NEUTROPHILS % (AUTO) 79.4 % (40.0-70.0); PLATELET COUNT (AUTO) 683 K/uL (130-430); RED BLOOD CELL COUNT(AUTO) 3.07 MIL/uL (4.2-6.2); RED CELL DISTRIBUTION WIDTH 19.3 % (9.0-15.0); WHITE BLOOD COUNT (AUTO) 5.7 K/uL (4.8-10.8)
[2017-05-19] MEDS ORDERED: NS 500 ML IV ONE (07:00)
[2017-05-19] MEDS ORDERED: DIGOXIN 0.5 MG/2 ML AMP IVP ONE ×2 (07:00→10:45)
[2017-05-19 07:03] LABS: CALCIUM 7.7 mg/dL (8.4-11.0); CREATININE 0.61 mg/dL (0.55-1.30); POTASSIUM 3.1 mmol/L (3.5-5.1)
[2017-05-19] MEDS ORDERED: DIGOXIN 0.5 MG/2 ML AMP ONE (07:39)
[2017-05-19] MEDS: DILTIAZEM HCL 125 MG in D5W 100 ML IV SCH ×3 (08:17→22:20)
[2017-05-19] MEDS: ATORVASTATIN 20 MG TABLET PO SCH (08:23)
[2017-05-19] MEDS: FAMOTIDINE PF 20 MG/2 ML VIAL IVP SCH ×2 (08:23→22:19)
[2017-05-19] MEDS: ASPIRIN 325 MG TABLET PO SCH (08:23)
[2017-05-19] MEDS ORDERED: POTASSIUM CHLORIDE 40 MEQ, MAGNESIUM SULFATE 4 GM in 0.45% NS 250 ML IV ONE (09:15)
[2017-05-19] MEDS ORDERED: POTASSIUM CHLORIDE 20 MEQ TAB.PRT.SR PO ONE (09:15)
[2017-05-19 09:58] LABS: ABG TOTAL HEMOGLOBIN 10.8 G/dL (12.0-18.0); BLOOD GAS BASE EXCESS -0.9 mmol/L (-3.0-3.0); BLOOD GAS COHb% 0.3 % (0.5-1.5); BLOOD O2Hb% 93.9 % (94.0-97.0)
[2017-05-19 09:59] LABS: BLOOD GAS HHB 5.6 % (0.0-6.0)
[2017-05-19] MEDS ORDERED: POTASSIUM CHLORIDE 20 MEQ/PKT PACKET PO ONE (11:00)
[2017-05-19] MEDS ORDERED: METOPROLOL SUCCINATE 50 MG TAB.SR.24H (TOPROL XL) PO ONE (13:30)
[2017-05-19] MEDS: ONDANSETRON HCL 4 MG/2 ML VIAL IVP PRN ×2 (15:36→22:31)
[2017-05-19] MEDS ORDERED: DILTIAZEM HCL 125 MG/25 ML VIAL IV ONE (22:18)
[2017-05-19] MEDS: METOPROLOL SUCCINATE 50 MG TAB.SR.24H (TOPROL XL) PO SCH (22:19)
[2017-05-20] VITALS (24 sets, daily range): BP systolic 87–112
[2017-05-20] MEDS: MORPHINE 4 MG/ML INJ. SYRINGE IVP PRN ×8 (00:08→22:27)
[2017-05-20] MEDS ORDERED: AMIODARONE HCL 150 MG/3ML VIAL IVP ONE (00:30)
[2017-05-20] MEDS ORDERED: AMIODARONE HCL 150 MG/3ML VIAL ONE (00:42)
[2017-05-20] MEDS: ONDANSETRON HCL 4 MG/2 ML VIAL IVP PRN (03:00)
[2017-05-20] MEDS: METOCLOPRAMIDE HCL 10 MG/2 ML VIAL IVP SCH ×4 (06:44→21:52)
[2017-05-20] MEDS: DILTIAZEM HCL 125 MG in D5W 100 ML IV SCH ×2 (06:45→14:53)
[2017-05-20] MEDS ORDERED: DILTIAZEM HCL 125 MG/25 ML VIAL IV ONE (06:48)
[2017-05-20 06:58] LABS: CALCIUM 7.6 mg/dL (8.4-11.0); CREATININE 0.43 mg/dL (0.55-1.30); POTASSIUM 3.4 mmol/L (3.5-5.1)
[2017-05-20 06:59] LABS: ALBUMIN 1.9 g/dL (3.4-4.8); PHOSPHORUS 2.2 mg/dL (2.7-4.5); TOTAL BILIRUBIN 0.3 mg/dL (0.0-1.0); TOTAL PROTEIN, SERUM 5.8 g/dL (6.4-8.3)
[2017-05-20 07:22] LABS: BASOPHILS % (AUTO) 0.3 % (0.0-2.0); EOSINOPHILS % (AUTO) 0.4 % (0.0-4.0); HEMATOCRIT 33.1 % (36-48); HEMOGLOBIN 10.8 g/dL (12.0-16.0); LYMPHOCYTES # (AUTO) 0.6 K/uL (1.0-5.5); LYMPHOCYTES % (AUTO) 9.3 % (20.5-51.5); MEAN CORPUSCULAR HEMOGLOBIN 31 pg (27-31); MEAN CORPUSCULAR HGB CONC 33 % (32-36); MEAN CORPUSCULAR VOLUME 95 fL (79.0-98.0); MONOCYTES # (AUTO) 0.6 K/uL (0.0-1.0); MONOCYTES % (AUTO) 9.7 % (1.7-9.3); NEUTROPHILS # (AUTO) 5.1 K/uL (1.8-7.7); RED BLOOD CELL COUNT(AUTO) 3.47 MIL/uL (4.2-6.2); RED CELL DISTRIBUTION WIDTH 19.6 % (9.0-15.0); WHITE BLOOD COUNT (AUTO) 6.3 K/uL (4.8-10.8)
[2017-05-20 07:25] LABS: BLOOD GAS BASE EXCESS -0.2 mmol/L (-3.0-3.0); BLOOD GAS COHb% 0.7 % (0.5-1.5); BLOOD GAS HHB 6.1 % (0.0-6.0)
[2017-05-20 08:14] LABS: PLATELET COUNT (AUTO) 797 K/uL (130-430)
[2017-05-20] MEDS: ATORVASTATIN 20 MG TABLET PO SCH (09:00)
[2017-05-20] MEDS: ASPIRIN 325 MG TABLET PO SCH (09:00)
[2017-05-20] MEDS: METOPROLOL SUCCINATE 50 MG TAB.SR.24H (TOPROL XL) PO SCH ×2 (09:00→21:52)
[2017-05-20] MEDS: FAMOTIDINE PF 20 MG/2 ML VIAL IVP SCH ×2 (09:15→21:52)
[2017-05-20 10:34] LABS: NEUTROPHILS % (AUTO) 80.3 % (40.0-70.0)
[2017-05-20] MEDS ORDERED: MORPHINE 4 MG/ML INJ. SYRINGE IVP ONE (12:15)
[2017-05-20] MEDS ORDERED: POTASSIUM CHLORIDE 20 MEQ TAB.PRT.SR PO ONE (15:00)
[2017-05-20] MEDS ORDERED: POTASSIUM CHLORIDE 40 MEQ, LIDOCAINE JECT 2% PF 100 MG 50 MG in NS 250 ML IV ONE ×2 (15:00→17:45)
[2017-05-20] MEDS ORDERED: POTASSIUM CHLORIDE 20 MEQ TAB.PRT.SR PO SCH (21:00)
[2017-05-21] VITALS (22 sets, daily range): BP systolic 74–151
[2017-05-21] MEDS: ONDANSETRON HCL 4 MG/2 ML VIAL IVP PRN ×2 (00:08→10:02)
[2017-05-21] MEDS: DILTIAZEM HCL 125 MG in D5W 100 ML IV SCH ×2 (00:19→10:05)
[2017-05-21] MEDS ORDERED: DILTIAZEM HCL 125 MG/25 ML VIAL IV ONE (00:22)
[2017-05-21] MEDS: MORPHINE 4 MG/ML INJ. SYRINGE IVP PRN ×9 (02:24→21:17)
[2017-05-21] MEDS: METOCLOPRAMIDE HCL 10 MG/2 ML VIAL IVP SCH ×4 (06:46→21:02)
[2017-05-21 07:15] LABS: BASOPHILS % (AUTO) 0.4 % (0.0-2.0); EOSINOPHILS % (AUTO) 0.5 % (0.0-4.0); HEMATOCRIT 31.4 % (36-48); HEMOGLOBIN 10.4 g/dL (12.0-16.0); LYMPHOCYTES # (AUTO) 0.6 K/uL (1.0-5.5); LYMPHOCYTES % (AUTO) 9.4 % (20.5-51.5); MEAN CORPUSCULAR HEMOGLOBIN 31 pg (27-31); MEAN CORPUSCULAR HGB CONC 33 % (32-36); MEAN CORPUSCULAR VOLUME 95 fL (79.0-98.0); MONOCYTES # (AUTO) 0.6 K/uL (0.0-1.0); MONOCYTES % (AUTO) 9.6 % (1.7-9.3); NEUTROPHILS # (AUTO) 5.5 K/uL (1.8-7.7); NEUTROPHILS % (AUTO) 80.1 % (40.0-70.0); RED BLOOD CELL COUNT(AUTO) 3.31 MIL/uL (4.2-6.2); RED CELL DISTRIBUTION WIDTH 19.3 % (9.0-15.0); WHITE BLOOD COUNT (AUTO) 6.7 K/uL (4.8-10.8)
[2017-05-21 07:25] LABS: CALCIUM 8.1 mg/dL (8.4-11.0); CREATININE 0.56 mg/dL (0.55-1.30); POTASSIUM 3.4 mmol/L (3.5-5.1)
[2017-05-21 08:26] LABS: PLATELET COUNT (AUTO) 853 K/uL (130-430)
[2017-05-21] MEDS: METOPROLOL SUCCINATE 50 MG TAB.SR.24H (TOPROL XL) PO SCH ×2 (09:59→21:10)
[2017-05-21] MEDS: ASPIRIN 325 MG TABLET PO SCH (10:00)
[2017-05-21] MEDS: ATORVASTATIN 20 MG TABLET PO SCH (10:00)
[2017-05-21] MEDS: FAMOTIDINE PF 20 MG/2 ML VIAL IVP SCH ×2 (10:05→21:02)
[2017-05-21] MEDS ORDERED: POTASSIUM CHLORIDE 20 MEQ TAB.PRT.SR PO ONE (10:15)
[2017-05-21] MEDS ORDERED: DEXTROSE 50% JECT 50 ML DISP.SYRIN IVP PRN (10:30)
[2017-05-21] MEDS ORDERED: INSULIN REGULAR, HUMAN 100 UNITS/ML, 10 ML VIAL (novoLIN R) SUBCUT PRN (10:30)
[2017-05-21] MEDS ORDERED: *TPN PER PHARMACY XX PRN (10:30)
[2017-05-21] MEDS ORDERED: POTASSIUM CHLORIDE 40 MEQ, LIDOCAINE JECT 2% PF 100 MG 50 MG in NS 250 ML IV ONE (10:30)
[2017-05-21 10:58] LABS: INR 1.3 (0.8-1.2); PROTHROMBIN TIME 14.7 SECS (9.5-12.5)
[2017-05-21] MEDS ORDERED: NS 500 ML IV ONE (16:30)
[2017-05-21] MEDS ORDERED: NOREPINEPHRINE BITARTRATE 4 MG in NS 246 ML IV PRN (16:30)
[2017-05-21] MEDS ORDERED: COMMUNICATION ORDER XX ONE (16:30)
[2017-05-21] MEDS: FAT EMULSIONS 250 ML IV SCH (18:16)
[2017-05-21] MEDS: TPN CENTRAL IV SCH ×10 (18:18)
[2017-05-21] MEDS: K PHOS IV SCH ×10 (18:18)
[2017-05-21] MEDS: SODIUM CHLORIDE IV SCH ×10 (18:18)
[2017-05-21] MEDS: [UNRECOGNIZED DRUG - OTHER] IV SCH ×10 (18:18)
[2017-05-21] MEDS: POTASSIUM ACETATE IV SCH ×10 (18:18)
[2017-05-21] MEDS ORDERED: POTASSIUM CHLORIDE 20 MEQ TAB.PRT.SR PO SCH (21:00)
[2017-05-21] MEDS: ENOXAPARIN SODIUM 40 MG/0.4 ML SYRINGE SUBCUT SCH (21:11)
[2017-05-22] VITALS (14 sets, daily range): BP systolic 91–158
[2017-05-22] MEDS: D5LR 1,000 ML IV SCH ×2 (00:22→16:40)
[2017-05-22] MEDS: MORPHINE 4 MG/ML INJ. SYRINGE IVP PRN ×7 (01:54→22:59)
[2017-05-22] MEDS: METOCLOPRAMIDE HCL 10 MG/2 ML VIAL IVP SCH ×3 (06:29→17:52)
[2017-05-22 06:50] LABS: EOSINOPHILS # (AUTO) 0.1 K/uL (0.0-0.4); MONOCYTES # (AUTO) 0.8 K/uL (0.0-1.0); WHITE BLOOD COUNT (AUTO) 6.9 K/uL (4.8-10.8)
[2017-05-22 07:22] LABS: ALBUMIN 1.8 g/dL (3.4-4.8); CREATININE 0.58 mg/dL (0.55-1.30); POTASSIUM 3.8 mmol/L (3.5-5.1); TOTAL BILIRUBIN 0.2 mg/dL (0.0-1.0); TOTAL PROTEIN, SERUM 5.4 g/dL (6.4-8.3)
[2017-05-22 07:46] LABS: BASOPHILS % (AUTO) 0.4 % (0.0-2.0); EOSINOPHILS % (AUTO) 1.5 % (0.0-4.0); HEMATOCRIT 29.6 % (36-48); HEMOGLOBIN 9.8 g/dL (12.0-16.0); LYMPHOCYTES # (AUTO) 0.9 K/uL (1.0-5.5); LYMPHOCYTES % (AUTO) 12.7 % (20.5-51.5); MEAN CORPUSCULAR HEMOGLOBIN 31 pg (27-31); MEAN CORPUSCULAR HGB CONC 33 % (32-36); MEAN CORPUSCULAR VOLUME 94 fL (79.0-98.0); NEUTROPHILS # (AUTO) 5.1 K/uL (1.8-7.7); NEUTROPHILS % (AUTO) 73.4 % (40.0-70.0); PLATELET COUNT (AUTO) 714 K/uL (130-430); RED BLOOD CELL COUNT(AUTO) 3.14 MIL/uL (4.2-6.2); RED CELL DISTRIBUTION WIDTH 19.8 % (9.0-15.0)
[2017-05-22] MEDS: ONDANSETRON HCL 4 MG/2 ML VIAL IVP PRN ×2 (08:53→21:13)
[2017-05-22 09:18] LABS: INR 1.1 (0.8-1.2); PROTHROMBIN TIME 12.3 SECS (9.5-12.5)
[2017-05-22] MEDS: FAMOTIDINE PF 20 MG/2 ML VIAL IVP SCH ×2 (09:34→21:08)
[2017-05-22] MEDS: METOPROLOL SUCCINATE 50 MG TAB.SR.24H (TOPROL XL) PO SCH ×2 (09:34→21:09)
[2017-05-22] MEDS: ASPIRIN 325 MG TABLET PO SCH (09:35)
[2017-05-22] MEDS: ATORVASTATIN 20 MG TABLET PO SCH (09:35)
[2017-05-22] MEDS ORDERED: LOPERAMIDE HCL 2 MG CAPSULE PO ONE (16:00)
[2017-05-22] MEDS: SODIUM CHLORIDE IV SCH ×10 (17:53)
[2017-05-22] MEDS: TPN CENTRAL IV SCH ×10 (17:53)
[2017-05-22] MEDS: POTASSIUM ACETATE IV SCH ×10 (17:53)
[2017-05-22] MEDS: FAT EMULSIONS 250 ML IV SCH (17:53)
[2017-05-22] MEDS: K PHOS IV SCH ×10 (17:53)
[2017-05-22] MEDS: [UNRECOGNIZED DRUG - OTHER] IV SCH ×10 (17:53)
[2017-05-22] MEDS: ENOXAPARIN SODIUM 40 MG/0.4 ML SYRINGE SUBCUT SCH (21:08)
[2017-05-22] MEDS: metroNIDAZOLE 250 MG TABLET PO SCH (21:14)
[2017-05-23] VITALS (7 sets, daily range): BP systolic 93–120
[2017-05-23] MEDS: METOCLOPRAMIDE HCL 10 MG/2 ML VIAL IVP SCH ×2 (00:52→06:03)
[2017-05-23] MEDS: MORPHINE 4 MG/ML INJ. SYRINGE IVP PRN (06:03)
[2017-05-23] MEDS: metroNIDAZOLE 250 MG TABLET PO SCH ×3 (06:03→21:26)
[2017-05-23 07:58] LABS: BASOPHILS % (AUTO) 0.4 % (0.0-2.0); EOSINOPHILS # (AUTO) 0.1 K/uL (0.0-0.4); EOSINOPHILS % (AUTO) 1.3 % (0.0-4.0); HEMATOCRIT 31.5 % (36-48); HEMOGLOBIN 10.3 g/dL (12.0-16.0); LYMPHOCYTES # (AUTO) 0.7 K/uL (1.0-5.5); LYMPHOCYTES % (AUTO) 7.6 % (20.5-51.5); MEAN CORPUSCULAR HEMOGLOBIN 31 pg (27-31); MEAN CORPUSCULAR HGB CONC 33 % (32-36); MEAN CORPUSCULAR VOLUME 94 fL (79.0-98.0); MONOCYTES # (AUTO) 0.8 K/uL (0.0-1.0); MONOCYTES % (AUTO) 9.2 % (1.7-9.3); NEUTROPHILS # (AUTO) 7.2 K/uL (1.8-7.7); NEUTROPHILS % (AUTO) 81.5 % (40.0-70.0); PLATELET COUNT (AUTO) 717 K/uL (130-430); RED BLOOD CELL COUNT(AUTO) 3.35 MIL/uL (4.2-6.2); WHITE BLOOD COUNT (AUTO) 8.8 K/uL (4.8-10.8)
[2017-05-23] MEDS ORDERED: *PPN PER PHARMACY XX PRN (08:15)
[2017-05-23] MEDS ORDERED: DEXTROSE 50% JECT 50 ML DISP.SYRIN IVP PRN (08:15)
[2017-05-23 08:16] LABS: CALCIUM 8.1 mg/dL (8.4-11.0); CREATININE 0.57 mg/dL (0.55-1.30); PHOSPHORUS 3.6 mg/dL (2.7-4.5); POTASSIUM 5.6 mmol/L (3.5-5.1)
[2017-05-23] MEDS: ATORVASTATIN 20 MG TABLET PO SCH (09:00)
[2017-05-23] MEDS: METOPROLOL SUCCINATE 50 MG TAB.SR.24H (TOPROL XL) PO SCH ×2 (09:00→20:26)
[2017-05-23] MEDS: ASPIRIN 325 MG TABLET PO SCH (09:00)
[2017-05-23] MEDS: MORPHINE 2 MG/ML INJ. SYRINGE IVP PRN ×3 (09:42→20:35)
[2017-05-23] MEDS ORDERED: GASTROGRAFIN 120 ML ONE (10:23)
[2017-05-23] MEDS: ONDANSETRON HCL 4 MG/2 ML VIAL IVP PRN ×3 (10:41→20:35)
[2017-05-23] MEDS: D5NS 1,000 ML IV SCH ×2 (11:08→20:25)
[2017-05-23] MEDS: ACETAMINOPHEN/CODEINE 300 MG-30 MG TABLET PO PRN (13:07)
[2017-05-23] MEDS ORDERED: SODIUM CHLORIDE IV SCH ×10 (18:00)
[2017-05-23] MEDS ORDERED: TPN PERIPHERAL IV SCH ×10 (18:00)
[2017-05-23] MEDS ORDERED: [UNRECOGNIZED DRUG - OTHER] IV SCH ×10 (18:00)
[2017-05-23] MEDS ORDERED: POTASSIUM ACETATE IV SCH ×10 (18:00)
[2017-05-23] MEDS: FAT EMULSIONS 250 ML IV SCH (18:19)
[2017-05-23 18:24] LABS: CALCIUM 7.8 mg/dL (8.4-11.0); CREATININE 0.62 mg/dL (0.55-1.30); POTASSIUM 3.7 mmol/L (3.5-5.1)
[2017-05-23] MEDS: ENOXAPARIN SODIUM 40 MG/0.4 ML SYRINGE SUBCUT SCH (20:25)
[2017-05-24] VITALS (7 sets, daily range): BP systolic 94–139
[2017-05-24] MEDS: ONDANSETRON HCL 4 MG/2 ML VIAL IVP PRN ×5 (00:20→21:36)
[2017-05-24] MEDS: MORPHINE 2 MG/ML INJ. SYRINGE IVP PRN ×7 (00:21→21:36)
[2017-05-24] MEDS: ACETAMINOPHEN/CODEINE 300 MG-30 MG TABLET PO PRN (02:18)
[2017-05-24] MEDS: metroNIDAZOLE 250 MG TABLET PO SCH ×4 (05:45→21:37)
[2017-05-24] MEDS: D5NS 1,000 ML IV SCH (06:15)
[2017-05-24 06:47] LABS: BASOPHILS # (AUTO) 0.1 K/uL (0.0-0.2); EOSINOPHILS # (AUTO) 0.1 K/uL (0.0-0.4); EOSINOPHILS % (AUTO) 1.4 % (0.0-4.0); HEMATOCRIT 25.2 % (36-48); HEMOGLOBIN 8.2 g/dL (12.0-16.0); LYMPHOCYTES # (AUTO) 0.7 K/uL (1.0-5.5); LYMPHOCYTES % (AUTO) 10.9 % (20.5-51.5); MEAN CORPUSCULAR HEMOGLOBIN 31 pg (27-31); MEAN CORPUSCULAR HGB CONC 33 % (32-36); MEAN CORPUSCULAR VOLUME 94 fL (79.0-98.0); MONOCYTES # (AUTO) 0.7 K/uL (0.0-1.0); MONOCYTES % (AUTO) 10.1 % (1.7-9.3); NEUTROPHILS # (AUTO) 4.9 K/uL (1.8-7.7); NEUTROPHILS % (AUTO) 76.6 % (40.0-70.0); PLATELET COUNT (AUTO) 703 K/uL (130-430); RED BLOOD CELL COUNT(AUTO) 2.67 MIL/uL (4.2-6.2); RED CELL DISTRIBUTION WIDTH 18.9 % (9.0-15.0)
[2017-05-24 07:09] LABS: WHITE BLOOD COUNT (AUTO) 6.5 K/uL (4.8-10.8)
[2017-05-24 07:13] LABS: CALCIUM 7.6 mg/dL (8.4-11.0); CREATININE 0.7 mg/dL (0.55-1.30); PHOSPHORUS 3.3 mg/dL (2.7-4.5); POTASSIUM 3.4 mmol/L (3.5-5.1)
[2017-05-24] MEDS: ATORVASTATIN 20 MG TABLET PO SCH (08:54)
[2017-05-24] MEDS: METOPROLOL SUCCINATE 50 MG TAB.SR.24H (TOPROL XL) PO SCH ×2 (08:56→21:00)
[2017-05-24] MEDS: ASPIRIN 325 MG TABLET PO SCH (08:57)
[2017-05-24] MEDS ORDERED: POTASSIUM CHLORIDE 40 MEQ, LIDOCAINE JECT 2% PF 100 MG 50 MG in NS 250 ML IV ONE (12:30)
[2017-05-24] MEDS: FAT EMULSIONS 250 ML IV SCH (18:29)
[2017-05-24] MEDS: [UNRECOGNIZED DRUG - OTHER] IV SCH ×10 (18:31)
[2017-05-24] MEDS: TPN PERIPHERAL IV SCH ×10 (18:31)
[2017-05-24] MEDS: SODIUM CHLORIDE IV SCH ×10 (18:31)
[2017-05-24] MEDS: POTASSIUM CHLORIDE IV SCH ×10 (18:31)
[2017-05-24] MEDS ORDERED: PANTOPRAZOLE SODIUM 40 MG/VIAL (PROTONIX) IVP SCH (21:00)
[2017-05-24] MEDS: ENOXAPARIN SODIUM 40 MG/0.4 ML SYRINGE SUBCUT SCH (21:23)
[2017-05-25] VITALS (14 sets, daily range): BP systolic 83–143
[2017-05-25] MEDS: metroNIDAZOLE 250 MG TABLET PO SCH (06:00)
[2017-05-25] MEDS: ONDANSETRON HCL 4 MG/2 ML VIAL IVP PRN ×2 (06:17→09:13)
[2017-05-25] MEDS: MORPHINE 2 MG/ML INJ. SYRINGE IVP PRN ×4 (06:19→18:02)
[2017-05-25 07:49] LABS: BASOPHILS % (AUTO) 0.1 % (0.0-2.0); EOSINOPHILS % (AUTO) 0.4 % (0.0-4.0); LYMPHOCYTES # (AUTO) 0.7 K/uL (1.0-5.5); LYMPHOCYTES % (AUTO) 7.4 % (20.5-51.5); MEAN CORPUSCULAR HEMOGLOBIN 31 pg (27-31); MEAN CORPUSCULAR HGB CONC 33 % (32-36); MEAN CORPUSCULAR VOLUME 94 fL (79.0-98.0); MONOCYTES # (AUTO) 0.7 K/uL (0.0-1.0); MONOCYTES % (AUTO) 7.6 % (1.7-9.3); NEUTROPHILS # (AUTO) 8.2 K/uL (1.8-7.7); NEUTROPHILS % (AUTO) 84.5 % (40.0-70.0); PLATELET COUNT (AUTO) 612 K/uL (130-430); RED BLOOD CELL COUNT(AUTO) 2.05 MIL/uL (4.2-6.2); RED CELL DISTRIBUTION WIDTH 19.4 % (9.0-15.0); WHITE BLOOD COUNT (AUTO) 9.6 K/uL (4.8-10.8)
[2017-05-25 07:58] LABS: CALCIUM 7.4 mg/dL (8.4-11.0); CREATININE 0.55 mg/dL (0.55-1.30); PHOSPHORUS 3.3 mg/dL (2.7-4.5); POTASSIUM 3.7 mmol/L (3.5-5.1)
[2017-05-25 08:09] LABS: HEMATOCRIT 19.2 % (36-48)
[2017-05-25] MEDS ORDERED: PANTOPRAZOLE SODIUM 40 MG/VIAL (PROTONIX) IVP ONE (08:45)
[2017-05-25] MEDS: ATORVASTATIN 20 MG TABLET PO SCH (09:00)
[2017-05-25] MEDS: ASPIRIN 325 MG TABLET PO SCH (09:00)
[2017-05-25] MEDS ORDERED: PANTOPRAZOLE SODIUM 40 MG TAB PO SCH (09:00)
[2017-05-25] MEDS: METOPROLOL SUCCINATE 50 MG TAB.SR.24H (TOPROL XL) PO SCH (09:00)
[2017-05-25 09:39] LABS: WHITE BLOOD COUNT (AUTO) 10.1 K/uL (4.8-10.8)
[2017-05-25 09:42] LABS: HEMATOCRIT 21.4 % (36-48); HEMOGLOBIN 6.8 g/dL (12.0-16.0); MEAN CORPUSCULAR HEMOGLOBIN 30 pg (27-31); MEAN CORPUSCULAR HGB CONC 32 % (32-36); MEAN CORPUSCULAR VOLUME 93 fL (79.0-98.0); PLATELET COUNT (AUTO) 650 K/uL (130-430); RED CELL DISTRIBUTION WIDTH 19.5 % (9.0-15.0)
[2017-05-25 09:43] LABS: BASOPHILS % (AUTO) 0.3 % (0.0-2.0); EOSINOPHILS % (AUTO) 0.2 % (0.0-4.0); LYMPHOCYTES # (AUTO) 0.8 K/uL (1.0-5.5); LYMPHOCYTES % (AUTO) 8.3 % (20.5-51.5); MONOCYTES # (AUTO) 0.9 K/uL (0.0-1.0); NEUTROPHILS # (AUTO) 8.4 K/uL (1.8-7.7); NEUTROPHILS % (AUTO) 82.2 % (40.0-70.0)
[2017-05-25 10:33] LABS: PROTHROMBIN TIME 10.9 SECS (9.5-12.5)
[2017-05-25] MEDS ORDERED: PANTOPRAZOLE SODIUM 40 MG in NS 50 ML IV SCH (10:45)
[2017-05-25] MEDS ORDERED: LOADING DOSE: PANTOPRAZOLE SODIUM 80 MG in NS 100 ML IVP ONE (10:45)
[2017-05-25 11:08] LABS: HEMOGLOBIN 6.3 g/dL (12.0-16.0)
[2017-05-25] MEDS ORDERED: ETOMIDATE 20 MG/ 10 ML VIAL (AMIDATE) IVP ONE (13:00)
[2017-05-25] MEDS ORDERED: SUCCINYLCHOLINE CHLORIDE 20 MG/ML(QUELICIN) IVP ONE (13:00)
[2017-05-25] MEDS ORDERED: NACL 0.9% 1,000 ML IV SCH (13:05)
[2017-05-25] MEDS ORDERED: ONDANSETRON HCL 4 MG/2 ML VIAL IVP PRN (13:15)
[2017-05-25] MEDS ORDERED: PROPOFOL DRIP 100 ML IV PRN (17:15)
[2017-05-25] MEDS ORDERED: LORazepam 2 MG/ML VIAL IVP ONE (17:15)
[2017-05-25] MEDS ORDERED: LORazepam 2 MG/ML VIAL ONE (17:19)
[2017-05-25] MEDS: MORPHINE PCA 50 mg/50 mL NS 50 ML IV PRN (19:30)
[2017-05-25] MEDS: SUCRALFATE 1 GM TABLET PO SCH (20:49)
[2017-05-25] MEDS ORDERED: NOREPINEPHRINE 4 MG/4 ML VIAL IV ONE (23:39)
[2017-05-25] MEDS: NOREPINEPHRINE BITARTRATE 4 MG in D5W 246 ML IV PRN (23:53)
[2017-05-26] VITALS (32 sets, daily range): BP systolic 66–157
[2017-05-26 00:01] LABS: BLOOD GAS BASE EXCESS -4.5 mmol/L (-3.0-3.0); BLOOD GAS HHB 1.4 % (0.0-6.0); BLOOD GAS PH 7.377 (7.350-7.450); BLOOD O2Hb% 98.5 % (94.0-97.0)
[2017-05-26] MEDS: PROPOFOL DRIP 100 ML IV PRN ×4 (00:01→23:01)
[2017-05-26] MEDS: FAT EMULSIONS 250 ML IV SCH (00:08)
[2017-05-26] MEDS: TPN PERIPHERAL IV SCH ×10 (00:16)
[2017-05-26] MEDS: POTASSIUM CHLORIDE IV SCH ×10 (00:16)
[2017-05-26] MEDS: SODIUM CHLORIDE IV SCH ×10 (00:16)
[2017-05-26] MEDS: [UNRECOGNIZED DRUG - OTHER] IV SCH ×10 (00:16)
[2017-05-26] MEDS: ENOXAPARIN SODIUM 40 MG/0.4 ML SYRINGE SUBCUT SCH ×2 (00:17→20:13)
[2017-05-26] MEDS: PANTOPRAZOLE SODIUM 40 MG in NS 50 ML IV SCH ×7 (00:30→20:12)
[2017-05-26] MEDS: METOPROLOL SUCCINATE 50 MG TAB.SR.24H (TOPROL XL) PO SCH ×3 (00:53→20:29)
[2017-05-26] MEDS: INSULIN REGULAR, HUMAN 100 UNITS/ML, 10 ML VIAL (novoLIN R) SUBCUT PRN ×4 (01:03→17:40)
[2017-05-26] MEDS ORDERED: NOREPINEPHRINE 4 MG/4 ML VIAL IV ONE ×4 (03:08→08:29)
[2017-05-26] MEDS: NOREPINEPHRINE BITARTRATE 4 MG in D5W 246 ML IV PRN ×5 (03:23→23:02)
[2017-05-26 06:52] LABS: CALCIUM 7.6 mg/dL (8.4-11.0); CREATININE 0.63 mg/dL (0.55-1.30); PHOSPHORUS 3.2 mg/dL (2.7-4.5); POTASSIUM 3.5 mmol/L (3.5-5.1)
[2017-05-26 06:56] LABS: BASOPHILS # (AUTO) 0.1 K/uL (0.0-0.2); BASOPHILS % (AUTO) 0.5 % (0.0-2.0); EOSINOPHILS # (AUTO) 0.1 K/uL (0.0-0.4); EOSINOPHILS % (AUTO) 0.4 % (0.0-4.0); HEMATOCRIT 27.9 % (36-48); HEMOGLOBIN 9.1 g/dL (12.0-16.0); LYMPHOCYTES # (AUTO) 1.6 K/uL (1.0-5.5); LYMPHOCYTES % (AUTO) 7.2 % (20.5-51.5); MEAN CORPUSCULAR HEMOGLOBIN 28 pg (27-31); MEAN CORPUSCULAR HGB CONC 33 % (32-36); MEAN CORPUSCULAR VOLUME 86 fL (79.0-98.0); MONOCYTES # (AUTO) 1.2 K/uL (0.0-1.0); MONOCYTES % (AUTO) 5.5 % (1.7-9.3); NEUTROPHILS # (AUTO) 18.9 K/uL (1.8-7.7); NEUTROPHILS % (AUTO) 86.4 % (40.0-70.0); RED BLOOD CELL COUNT(AUTO) 3.24 MIL/uL (4.2-6.2); RED CELL DISTRIBUTION WIDTH 24.2 % (9.0-15.0); WHITE BLOOD COUNT (AUTO) 21.9 K/uL (4.8-10.8)
[2017-05-26] MEDS ORDERED: AMIODARONE HCL 900 MG in D5W 482 ML IV SCH (07:15)
[2017-05-26 08:20] LABS: BLOOD GAS PH 7.446 (7.350-7.450)
[2017-05-26 08:21] LABS: ABG TOTAL HEMOGLOBIN 9.4 G/dL (12.0-18.0); BLOOD GAS BASE EXCESS 0.9 mmol/L (-3.0-3.0); BLOOD GAS COHb% 0.3 % (0.5-1.5); BLOOD GAS HHB 2.6 % (0.0-6.0); BLOOD O2Hb% 96.7 % (94.0-97.0)
[2017-05-26 08:35] LABS: PLATELET COUNT (AUTO) 889 K/uL (130-430)
[2017-05-26] MEDS ORDERED: POTASSIUM CHLORIDE 40 MEQ, MAGNESIUM SULFATE 4 GM in 0.45% NS 250 ML IV ONE (08:45)
[2017-05-26] MEDS: SUCRALFATE 1 GM TABLET PO SCH ×3 (10:11→20:13)
[2017-05-26] MEDS: ATORVASTATIN 20 MG TABLET PO SCH (10:12)
[2017-05-26] MEDS: ASPIRIN 325 MG TABLET PO SCH (10:12)
[2017-05-26] MEDS: LEVALBUTEROL HCL 0.63 MG/3 ML VIAL.NEB INH SCH ×2 (13:00→20:22)
[2017-05-26] MEDS: IPRATROPIUM BROM 0.5 MG/2.5 ML VIAL.NEB (ATROVENT) INH SCH ×2 (13:00→20:22)
[2017-05-26] MEDS: MORPHINE PCA 50 mg/50 mL NS 50 ML IV PRN (16:49)
[2017-05-26] MEDS ORDERED: LACTULOSE 20 GM/30 ML UDC PO ONE (20:45)
[2017-05-26] MEDS: D5/0.45 NS 1,000 ML IV SCH (20:54)
[2017-05-27] VITALS (33 sets, daily range): BP systolic 98–160
[2017-05-27] MEDS: PANTOPRAZOLE SODIUM 40 MG in NS 50 ML IV SCH ×5 (01:35→22:07)
[2017-05-27] MEDS: LEVALBUTEROL HCL 0.63 MG/3 ML VIAL.NEB INH SCH ×4 (02:50→19:43)
[2017-05-27] MEDS: IPRATROPIUM BROM 0.5 MG/2.5 ML VIAL.NEB (ATROVENT) INH SCH ×4 (02:50→19:43)
[2017-05-27] MEDS: NOREPINEPHRINE BITARTRATE 4 MG in D5W 246 ML IV PRN (05:16)
[2017-05-27] MEDS: INSULIN REGULAR, HUMAN 100 UNITS/ML, 10 ML VIAL (novoLIN R) SUBCUT PRN (05:53)
[2017-05-27 06:19] LABS: BASOPHILS # (AUTO) 0.1 K/uL (0.0-0.2); BASOPHILS % (AUTO) 0.7 % (0.0-2.0); EOSINOPHILS # (AUTO) 0.1 K/uL (0.0-0.4); EOSINOPHILS % (AUTO) 0.7 % (0.0-4.0); HEMATOCRIT 24.4 % (36-48); HEMOGLOBIN 8.1 g/dL (12.0-16.0); LYMPHOCYTES # (AUTO) 1.2 K/uL (1.0-5.5); LYMPHOCYTES % (AUTO) 7.4 % (20.5-51.5); MEAN CORPUSCULAR HEMOGLOBIN 28 pg (27-31); MEAN CORPUSCULAR HGB CONC 33 % (32-36); MEAN CORPUSCULAR VOLUME 86 fL (79.0-98.0); MONOCYTES # (AUTO) 1.2 K/uL (0.0-1.0); MONOCYTES % (AUTO) 7.3 % (1.7-9.3); NEUTROPHILS # (AUTO) 13.4 K/uL (1.8-7.7); RED BLOOD CELL COUNT(AUTO) 2.84 MIL/uL (4.2-6.2); RED CELL DISTRIBUTION WIDTH 23.3 % (9.0-15.0)
[2017-05-27] MEDS: PROPOFOL DRIP 100 ML IV PRN ×3 (06:39→23:49)
[2017-05-27 06:46] LABS: ALBUMIN 1.2 g/dL (3.4-4.8); CALCIUM 7.1 mg/dL (8.4-11.0); CREATININE 0.52 mg/dL (0.55-1.30); POTASSIUM 4.2 mmol/L (3.5-5.1); TOTAL BILIRUBIN 0.2 mg/dL (0.0-1.0); TOTAL PROTEIN, SERUM 4.8 g/dL (6.4-8.3)
[2017-05-27 06:56] LABS: PLATELET COUNT (AUTO) 660 K/uL (130-430)
[2017-05-27 07:41] LABS: ABG TOTAL HEMOGLOBIN 8.7 G/dL (12.0-18.0); BLOOD GAS BASE EXCESS -0.1 mmol/L (-3.0-3.0); BLOOD GAS COHb% 1.4 % (0.5-1.5); BLOOD GAS HHB 3.9 % (0.0-6.0); BLOOD GAS PH 7.441 (7.350-7.450); BLOOD O2Hb% 94.7 % (94.0-97.0)
[2017-05-27 08:18] LABS: NEUTROPHILS % (AUTO) 83.9 % (40.0-70.0)
[2017-05-27] MEDS: ATORVASTATIN 20 MG TABLET PO SCH (08:53)
[2017-05-27] MEDS: SUCRALFATE 1 GM TABLET PO SCH ×3 (08:53→20:58)
[2017-05-27] MEDS: ASPIRIN 325 MG TABLET PO SCH (08:53)
[2017-05-27] MEDS: METOPROLOL SUCCINATE 50 MG TAB.SR.24H (TOPROL XL) PO SCH ×2 (08:55→20:59)
[2017-05-27 09:45] LABS: IRON (SERUM) 11 mcg/dL (37-145); TOTAL IRON BIND. CAPACITY 129 ug/dL (250-450)
[2017-05-27] MEDS: D5/0.45 NS 1,000 ML IV SCH ×2 (09:48→21:56)
[2017-05-27] MEDS: SOD FERRIC GLUC COMPLEX/SUC 125 MG in NS 100 ML IV SCH (11:18)
[2017-05-27] MEDS ORDERED: LACTULOSE 20 GM/30 ML UDC PO ONE (13:45)
[2017-05-27] MEDS: METOCLOPRAMIDE HCL 10 MG/2 ML VIAL IVP SCH ×2 (14:27→21:58)
[2017-05-27] MEDS: ENOXAPARIN SODIUM 40 MG/0.4 ML SYRINGE SUBCUT SCH (21:00)
[2017-05-27] MEDS: MULTIVITAMINS,THERAPEUTIC 5 ML UDC GT SCH (21:12)
[2017-05-27] MEDS: MORPHINE PCA 50 mg/50 mL NS 50 ML IV PRN (23:18)
[2017-05-28] VITALS (37 sets, daily range): BP systolic 95–161
[2017-05-28] MEDS: IPRATROPIUM BROM 0.5 MG/2.5 ML VIAL.NEB (ATROVENT) INH SCH ×4 (00:08→19:41)
[2017-05-28] MEDS: LEVALBUTEROL HCL 0.63 MG/3 ML VIAL.NEB INH SCH ×4 (00:08→19:41)
[2017-05-28] MEDS: ONDANSETRON HCL 4 MG/2 ML VIAL IVP PRN (02:47)
[2017-05-28] MEDS: PANTOPRAZOLE SODIUM 40 MG in NS 50 ML IV SCH ×5 (04:08→23:23)
[2017-05-28] MEDS: PROPOFOL DRIP 100 ML IV PRN ×5 (05:54→23:20)
[2017-05-28] MEDS: METOCLOPRAMIDE HCL 10 MG/2 ML VIAL IVP SCH ×3 (06:00→21:44)
[2017-05-28 07:05] LABS: CALCIUM 7.1 mg/dL (8.4-11.0); CREATININE 0.54 mg/dL (0.55-1.30)
[2017-05-28 07:13] LABS: BASOPHILS # (AUTO) 0.1 K/uL (0.0-0.2); BASOPHILS % (AUTO) 1.1 % (0.0-2.0); EOSINOPHILS % (AUTO) 0.3 % (0.0-4.0); HEMATOCRIT 25.9 % (36-48); HEMOGLOBIN 8.7 g/dL (12.0-16.0); LYMPHOCYTES # (AUTO) 0.9 K/uL (1.0-5.5); LYMPHOCYTES % (AUTO) 6.8 % (20.5-51.5); MEAN CORPUSCULAR HEMOGLOBIN 29 pg (27-31); MEAN CORPUSCULAR HGB CONC 34 % (32-36); MEAN CORPUSCULAR VOLUME 87 fL (79.0-98.0); MONOCYTES # (AUTO) 0.8 K/uL (0.0-1.0); NEUTROPHILS % (AUTO) 85.8 % (40.0-70.0); PLATELET COUNT (AUTO) 502 K/uL (130-430); RED BLOOD CELL COUNT(AUTO) 2.96 MIL/uL (4.2-6.2); RED CELL DISTRIBUTION WIDTH 21.8 % (9.0-15.0); WHITE BLOOD COUNT (AUTO) 12.8 K/uL (4.8-10.8)
[2017-05-28] MEDS: ASPIRIN 325 MG TABLET PO SCH (08:36)
[2017-05-28] MEDS: SUCRALFATE 1 GM TABLET PO SCH ×3 (08:36→20:58)
[2017-05-28] MEDS: MULTIVITAMINS,THERAPEUTIC 5 ML UDC GT SCH ×2 (08:37→21:00)
[2017-05-28] MEDS: ATORVASTATIN 20 MG TABLET PO SCH (08:37)
[2017-05-28] MEDS: METOPROLOL SUCCINATE 50 MG TAB.SR.24H (TOPROL XL) PO SCH ×2 (08:37→20:59)
[2017-05-28] MEDS: ASPIRIN 81 MG TAB.CHEW PO SCH (09:00)
[2017-05-28] MEDS: MORPHINE 4 MG/ML INJ. SYRINGE IVP PRN ×3 (10:02→18:05)
[2017-05-28] MEDS: SOD FERRIC GLUC COMPLEX/SUC 125 MG in NS 100 ML IV SCH (10:11)
[2017-05-28] MEDS: D5/0.45 NS 1,000 ML IV SCH ×2 (11:03→23:39)
[2017-05-28] MEDS ORDERED: IOHEXOL 350 mgI/mL, 150 ML INFUS..BTL IV ONE (14:30)
[2017-05-28] MEDS: ENOXAPARIN SODIUM 40 MG/0.4 ML SYRINGE SUBCUT SCH (20:58)
[2017-05-29] VITALS (33 sets, daily range): BP systolic 102–134
[2017-05-29] MEDS: IPRATROPIUM BROM 0.5 MG/2.5 ML VIAL.NEB (ATROVENT) INH SCH ×4 (01:15→19:38)
[2017-05-29] MEDS: LEVALBUTEROL HCL 0.63 MG/3 ML VIAL.NEB INH SCH ×4 (01:15→19:39)
[2017-05-29] MEDS ORDERED: PROPOFOL DRIP 100 ML IV ONE (03:24)
[2017-05-29] MEDS: PROPOFOL DRIP 100 ML IV PRN ×4 (03:35→18:44)
[2017-05-29] MEDS: PANTOPRAZOLE SODIUM 40 MG in NS 50 ML IV SCH ×4 (03:39→20:58)
[2017-05-29] MEDS: MORPHINE 4 MG/ML INJ. SYRINGE IVP PRN ×2 (04:48→09:44)
[2017-05-29] MEDS: METOCLOPRAMIDE HCL 10 MG/2 ML VIAL IVP SCH ×3 (06:32→18:01)
[2017-05-29 06:58] LABS: CALCIUM 7.4 mg/dL (8.4-11.0); CREATININE 0.59 mg/dL (0.55-1.30); POTASSIUM 3.8 mmol/L (3.5-5.1)
[2017-05-29 08:29] LABS: ABG TOTAL HEMOGLOBIN 9.4 G/dL (12.0-18.0); BLOOD GAS BASE EXCESS -0.6 mmol/L (-3.0-3.0); BLOOD GAS COHb% 0.3 % (0.5-1.5); BLOOD GAS HHB 4.4 % (0.0-6.0); BLOOD GAS PH 7.489 (7.350-7.450)
[2017-05-29] MEDS: ASPIRIN 81 MG TAB.CHEW PO SCH (09:05)
[2017-05-29] MEDS: SUCRALFATE 1 GM TABLET PO SCH ×3 (09:05→20:57)
[2017-05-29] MEDS: ATORVASTATIN 20 MG TABLET PO SCH (09:05)
[2017-05-29] MEDS: MULTIVITAMINS,THERAPEUTIC 5 ML UDC GT SCH ×2 (09:06→21:00)
[2017-05-29] MEDS: METOPROLOL SUCCINATE 50 MG TAB.SR.24H (TOPROL XL) PO SCH ×2 (09:06→20:57)
[2017-05-29 10:11] LABS: BASOPHILS # (AUTO) 0.1 K/uL (0.0-0.2); EOSINOPHILS # (AUTO) 0.1 K/uL (0.0-0.4); EOSINOPHILS % (AUTO) 0.5 % (0.0-4.0); HEMATOCRIT 25.1 % (36-48); HEMOGLOBIN 8.1 g/dL (12.0-16.0); LYMPHOCYTES # (AUTO) 0.9 K/uL (1.0-5.5); LYMPHOCYTES % (AUTO) 7.2 % (20.5-51.5); MEAN CORPUSCULAR HEMOGLOBIN 28 pg (27-31); MEAN CORPUSCULAR HGB CONC 32 % (32-36); MEAN CORPUSCULAR VOLUME 88 fL (79.0-98.0); MONOCYTES # (AUTO) 0.7 K/uL (0.0-1.0); MONOCYTES % (AUTO) 5.5 % (1.7-9.3); NEUTROPHILS # (AUTO) 10.7 K/uL (1.8-7.7); PLATELET COUNT (AUTO) 537 K/uL (130-430); RED BLOOD CELL COUNT(AUTO) 2.85 MIL/uL (4.2-6.2); RED CELL DISTRIBUTION WIDTH 21.4 % (9.0-15.0); WHITE BLOOD COUNT (AUTO) 12.5 K/uL (4.8-10.8)
[2017-05-29] MEDS: SOD FERRIC GLUC COMPLEX/SUC 125 MG in NS 100 ML IV SCH (10:41)
[2017-05-29] MEDS: D5/0.45 NS 1,000 ML IV SCH (11:54)
[2017-05-29 12:15] LABS: NEUTROPHILS % (AUTO) 85.8 % (40.0-70.0)
[2017-05-29] MEDS: MORPHINE 2 MG/ML INJ. SYRINGE IVP PRN (12:46)
[2017-05-29] MEDS: LORazepam 2 MG/ML VIAL IVP PRN (14:54)
[2017-05-29] MEDS: ENOXAPARIN SODIUM 40 MG/0.4 ML SYRINGE SUBCUT SCH (20:57)
[2017-05-30] VITALS (30 sets, daily range): BP systolic 106–149
[2017-05-30] MEDS: METOCLOPRAMIDE HCL 10 MG/2 ML VIAL IVP SCH ×2 (00:02→06:22)
[2017-05-30] MEDS: D5/0.45 NS 1,000 ML IV SCH ×2 (00:03→13:35)
[2017-05-30] MEDS: LEVALBUTEROL HCL 0.63 MG/3 ML VIAL.NEB INH SCH ×4 (00:56→19:42)
[2017-05-30] MEDS: IPRATROPIUM BROM 0.5 MG/2.5 ML VIAL.NEB (ATROVENT) INH SCH ×4 (00:56→19:42)
[2017-05-30] MEDS: PROPOFOL DRIP 100 ML IV PRN ×3 (01:38→19:07)
[2017-05-30] MEDS: PANTOPRAZOLE SODIUM 40 MG in NS 50 ML IV SCH ×4 (01:51→15:51)
[2017-05-30] MEDS: MORPHINE 2 MG/ML INJ. SYRINGE IVP PRN (02:13)
[2017-05-30 07:20] LABS: CALCIUM 7.6 mg/dL (8.4-11.0); CREATININE 0.58 mg/dL (0.55-1.30); POTASSIUM 3.4 mmol/L (3.5-5.1)
[2017-05-30 07:24] LABS: BASOPHILS # (AUTO) 0.3 K/uL (0.0-0.2); BASOPHILS % (AUTO) 2.6 % (0.0-2.0); EOSINOPHILS % (AUTO) 0.3 % (0.0-4.0); HEMATOCRIT 29.5 % (36-48); HEMOGLOBIN 9.6 g/dL (12.0-16.0); LYMPHOCYTES # (AUTO) 0.7 K/uL (1.0-5.5); LYMPHOCYTES % (AUTO) 6.2 % (20.5-51.5); MEAN CORPUSCULAR HEMOGLOBIN 29 pg (27-31); MEAN CORPUSCULAR HGB CONC 33 % (32-36); MEAN CORPUSCULAR VOLUME 88 fL (79.0-98.0); MONOCYTES # (AUTO) 0.9 K/uL (0.0-1.0); MONOCYTES % (AUTO) 7.7 % (1.7-9.3); NEUTROPHILS # (AUTO) 10.1 K/uL (1.8-7.7); NEUTROPHILS % (AUTO) 83.2 % (40.0-70.0); PLATELET COUNT (AUTO) 538 K/uL (130-430); RED BLOOD CELL COUNT(AUTO) 3.34 MIL/uL (4.2-6.2); RED CELL DISTRIBUTION WIDTH 20.3 % (9.0-15.0)
[2017-05-30 07:56] LABS: ABG TOTAL HEMOGLOBIN 10.4 G/dL (12.0-18.0); BLOOD GAS BASE EXCESS -0.8 mmol/L (-3.0-3.0); BLOOD GAS COHb% 0.3 % (0.5-1.5); BLOOD GAS HHB 4.2 % (0.0-6.0); BLOOD GAS PH 7.505 (7.350-7.450); BLOOD O2Hb% 94.9 % (94.0-97.0)
[2017-05-30] MEDS: ATORVASTATIN 20 MG TABLET PO SCH (09:01)
[2017-05-30] MEDS: METOPROLOL SUCCINATE 50 MG TAB.SR.24H (TOPROL XL) PO SCH ×2 (09:01→22:28)
[2017-05-30] MEDS: ASPIRIN 81 MG TAB.CHEW PO SCH (09:01)
[2017-05-30] MEDS: SOD FERRIC GLUC COMPLEX/SUC 125 MG in NS 100 ML IV SCH (09:02)
[2017-05-30] MEDS: SUCRALFATE 1 GM TABLET PO SCH ×3 (09:07→22:29)
[2017-05-30] MEDS ORDERED: POTASSIUM CHLORIDE 40 MEQ, MAGNESIUM SULFATE 2 GM in 0.45% NS 250 ML IV ONE (09:30)
[2017-05-30] MEDS: MULTIVITAMINS,THERAPEUTIC 5 ML UDC GT SCH ×2 (10:58→21:00)
[2017-05-30] MEDS ORDERED: POTASSIUM CHLORIDE 20 MEQ/PKT PACKET PO SCH (13:30)
[2017-05-30] MEDS: LORazepam 2 MG/ML VIAL IVP PRN (13:32)
[2017-05-30] MEDS: ENOXAPARIN SODIUM 40 MG/0.4 ML SYRINGE SUBCUT SCH (22:29)
[2017-05-30] MEDS: PANTOPRAZOLE SODIUM 40 MG/VIAL (PROTONIX) IVP SCH (22:29)
[2017-05-31] VITALS (30 sets, daily range): BP systolic 90–142
[2017-05-31] MEDS: PROPOFOL DRIP 100 ML IV PRN ×4 (01:16→19:30)
[2017-05-31] MEDS: D5/0.45 NS 1,000 ML IV SCH ×3 (01:17→19:21)
[2017-05-31] MEDS: IPRATROPIUM BROM 0.5 MG/2.5 ML VIAL.NEB (ATROVENT) INH SCH ×4 (01:29→19:39)
[2017-05-31] MEDS: LEVALBUTEROL HCL 0.63 MG/3 ML VIAL.NEB INH SCH ×4 (01:29→19:38)
[2017-05-31] MEDS: MORPHINE 2 MG/ML INJ. SYRINGE IVP PRN (02:54)
[2017-05-31 07:02] LABS: BASOPHILS # (AUTO) 0.1 K/uL (0.0-0.2); BASOPHILS % (AUTO) 0.8 % (0.0-2.0); EOSINOPHILS # (AUTO) 0.1 K/uL (0.0-0.4); EOSINOPHILS % (AUTO) 0.6 % (0.0-4.0); HEMATOCRIT 28.6 % (36-48); HEMOGLOBIN 9.3 g/dL (12.0-16.0); LYMPHOCYTES # (AUTO) 0.9 K/uL (1.0-5.5); LYMPHOCYTES % (AUTO) 8.5 % (20.5-51.5); MEAN CORPUSCULAR HEMOGLOBIN 29 pg (27-31); MEAN CORPUSCULAR HGB CONC 33 % (32-36); MEAN CORPUSCULAR VOLUME 88 fL (79.0-98.0); MONOCYTES # (AUTO) 0.4 K/uL (0.0-1.0); MONOCYTES % (AUTO) 4.2 % (1.7-9.3); NEUTROPHILS # (AUTO) 8.6 K/uL (1.8-7.7); NEUTROPHILS % (AUTO) 85.9 % (40.0-70.0); PLATELET COUNT (AUTO) 504 K/uL (130-430); RED BLOOD CELL COUNT(AUTO) 3.25 MIL/uL (4.2-6.2); RED CELL DISTRIBUTION WIDTH 20.2 % (9.0-15.0); WHITE BLOOD COUNT (AUTO) 10.1 K/uL (4.8-10.8)
[2017-05-31 07:28] LABS: CALCIUM 7.2 mg/dL (8.4-11.0); CREATININE 0.5 mg/dL (0.55-1.30)
[2017-05-31 07:41] LABS: POTASSIUM 2.9 mmol/L (3.5-5.1)
[2017-05-31] MEDS: PANTOPRAZOLE SODIUM 40 MG/VIAL (PROTONIX) IVP SCH ×2 (08:47→21:20)
[2017-05-31] MEDS: ASPIRIN 81 MG TAB.CHEW PO SCH (08:48)
[2017-05-31] MEDS: SUCRALFATE 1 GM TABLET PO SCH ×3 (08:48→21:20)
[2017-05-31] MEDS ORDERED: POTASSIUM CHLORIDE 20 MEQ/PKT PACKET PO SCH (09:00)
[2017-05-31] MEDS: METOPROLOL SUCCINATE 50 MG TAB.SR.24H (TOPROL XL) PO SCH ×2 (09:00→13:09)
[2017-05-31] MEDS: ATORVASTATIN 20 MG TABLET PO SCH (09:02)
[2017-05-31] MEDS ORDERED: POTASSIUM CHLORIDE 20 MEQ/PKT PACKET PO ONE (12:00)
[2017-05-31] MEDS: MULTIVITAMINS,THERAPEUTIC 5 ML UDC GT SCH ×2 (12:19→21:00)
[2017-05-31] MEDS: SOD FERRIC GLUC COMPLEX/SUC 125 MG in NS 100 ML IV SCH (12:20)
[2017-05-31] MEDS: ONDANSETRON HCL 4 MG/2 ML VIAL IVP PRN (13:08)
[2017-05-31] MEDS ORDERED: POTASSIUM CHLORIDE 40 MEQ, LIDOCAINE JECT 2% PF 100 MG 50 MG in NS 250 ML IV ONE (13:45)
[2017-05-31] MEDS: MECLIZINE HCL 25 MG TABLET (ANITVERT) PO SCH ×2 (14:26→21:20)
[2017-05-31] MEDS: POTASSIUM CHLORIDE 20 MEQ/PKT PACKET PO SCH (21:20)
[2017-05-31] MEDS: ENOXAPARIN SODIUM 40 MG/0.4 ML SYRINGE SUBCUT SCH (21:21)
[2017-06-01] VITALS (30 sets, daily range): BP systolic 87–164
[2017-06-01] MEDS: IPRATROPIUM BROM 0.5 MG/2.5 ML VIAL.NEB (ATROVENT) INH SCH ×4 (00:52→19:40)
[2017-06-01] MEDS: LEVALBUTEROL HCL 0.63 MG/3 ML VIAL.NEB INH SCH ×4 (00:52→19:40)
[2017-06-01] MEDS: PROPOFOL DRIP 100 ML IV PRN (02:56)
[2017-06-01] MEDS: ONDANSETRON HCL 4 MG/2 ML VIAL IVP PRN ×2 (02:56→14:16)
[2017-06-01] MEDS: MORPHINE 2 MG/ML INJ. SYRINGE IVP PRN ×4 (03:06→21:57)
[2017-06-01 06:48] LABS: BASOPHILS # (AUTO) 0.1 K/uL (0.0-0.2); BASOPHILS % (AUTO) 1.2 % (0.0-2.0); EOSINOPHILS % (AUTO) 0.4 % (0.0-4.0); HEMATOCRIT 28.7 % (36-48); HEMOGLOBIN 9.5 g/dL (12.0-16.0); LYMPHOCYTES # (AUTO) 0.9 K/uL (1.0-5.5); LYMPHOCYTES % (AUTO) 8.2 % (20.5-51.5); MEAN CORPUSCULAR HEMOGLOBIN 29 pg (27-31); MEAN CORPUSCULAR HGB CONC 33 % (32-36); MEAN CORPUSCULAR VOLUME 89 fL (79.0-98.0); MONOCYTES # (AUTO) 0.6 K/uL (0.0-1.0); MONOCYTES % (AUTO) 5.5 % (1.7-9.3); NEUTROPHILS # (AUTO) 9.5 K/uL (1.8-7.7); NEUTROPHILS % (AUTO) 84.7 % (40.0-70.0); PLATELET COUNT (AUTO) 668 K/uL (130-430); RED BLOOD CELL COUNT(AUTO) 3.24 MIL/uL (4.2-6.2); WHITE BLOOD COUNT (AUTO) 11.1 K/uL (4.8-10.8)
[2017-06-01 07:20] LABS: CALCIUM 7.6 mg/dL (8.4-11.0); CREATININE 0.44 mg/dL (0.55-1.30); POTASSIUM 4.5 mmol/L (3.5-5.1); TOTAL BILIRUBIN 0.1 mg/dL (0.0-1.0); TOTAL PROTEIN, SERUM 5.3 g/dL (6.4-8.3)
[2017-06-01 07:58] LABS: ABG TOTAL HEMOGLOBIN 10.2 G/dL (12.0-18.0); BLOOD GAS BASE EXCESS -1.5 mmol/L (-3.0-3.0); BLOOD GAS PH 7.454 (7.350-7.450)
[2017-06-01 07:59] LABS: BLOOD GAS COHb% 0.3 % (0.5-1.5); BLOOD O2Hb% 96.6 % (94.0-97.0)
[2017-06-01] MEDS: MULTIVITAMINS,THERAPEUTIC 5 ML UDC GT SCH ×3 (09:41→20:12)
[2017-06-01] MEDS: PANTOPRAZOLE SODIUM 40 MG/VIAL (PROTONIX) IVP SCH ×2 (09:42→20:06)
[2017-06-01] MEDS: ATORVASTATIN 20 MG TABLET PO SCH (09:42)
[2017-06-01] MEDS: POTASSIUM CHLORIDE 20 MEQ/PKT PACKET PO SCH (09:42)
[2017-06-01] MEDS: ASPIRIN 81 MG TAB.CHEW PO SCH (09:42)
[2017-06-01] MEDS: MECLIZINE HCL 25 MG TABLET (ANITVERT) PO SCH ×3 (09:43→20:07)
[2017-06-01] MEDS: SUCRALFATE 1 GM TABLET PO SCH ×3 (09:43→20:08)
[2017-06-01] MEDS: METOPROLOL SUCCINATE 50 MG TAB.SR.24H (TOPROL XL) PO SCH ×2 (09:43→20:08)
[2017-06-01] MEDS: SOD FERRIC GLUC COMPLEX/SUC 125 MG in NS 100 ML IV SCH ×2 (09:58→15:37)
[2017-06-01] MEDS ORDERED: DEXTROSE 50% JECT 50 ML DISP.SYRIN IVP PRN (11:30)
[2017-06-01] MEDS ORDERED: INSULIN REGULAR, HUMAN 100 UNITS/ML, 10 ML VIAL (novoLIN R) SUBCUT PRN (11:30)
[2017-06-01] MEDS ORDERED: *TPN PER PHARMACY XX PRN (11:30)
[2017-06-01] MEDS: LR 1,000 ML IV SCH (14:06)
[2017-06-01] MEDS: TPN CENTRAL 0.0001 ML, SODIUM ACETATE 40 MEQ, POTASSIUM ACETATE 20 MEQ, K PHOS 9 MM, CA... IV SCH ×10 (18:02)
[2017-06-01] MEDS: HALOPERIDOL LACTATE 5 MG/ML VIAL IVP PRN ×3 (18:30→23:30)
[2017-06-01] MEDS: ENOXAPARIN SODIUM 40 MG/0.4 ML SYRINGE SUBCUT SCH (20:07)
[2017-06-01] MEDS ORDERED: HALOPERIDOL LACTATE 5 MG/ML VIAL ONE (23:23)
[2017-06-02] VITALS (36 sets, daily range): BP systolic 119–190
[2017-06-02] MEDS: MORPHINE 2 MG/ML INJ. SYRINGE IVP PRN ×7 (00:56→22:40)
[2017-06-02] MEDS: INSULIN REGULAR, HUMAN 100 UNITS/ML, 10 ML VIAL (novoLIN R) SUBCUT PRN ×2 (01:18→05:40)
[2017-06-02] MEDS: IPRATROPIUM BROM 0.5 MG/2.5 ML VIAL.NEB (ATROVENT) INH SCH ×4 (01:39→19:55)
[2017-06-02] MEDS: LEVALBUTEROL HCL 0.63 MG/3 ML VIAL.NEB INH SCH ×4 (01:40→19:55)
[2017-06-02] MEDS: ONDANSETRON HCL 4 MG/2 ML VIAL IVP PRN (02:15)
[2017-06-02] MEDS: HALOPERIDOL LACTATE 5 MG/ML VIAL IVP PRN ×4 (02:15→10:07)
[2017-06-02 06:47] LABS: BASOPHILS # (AUTO) 0.1 K/uL (0.0-0.2); EOSINOPHILS % (AUTO) 0.3 % (0.0-4.0); HEMATOCRIT 27.7 % (36-48); LYMPHOCYTES # (AUTO) 0.8 K/uL (1.0-5.5); LYMPHOCYTES % (AUTO) 6.8 % (20.5-51.5); MEAN CORPUSCULAR HEMOGLOBIN 29 pg (27-31); MEAN CORPUSCULAR HGB CONC 33 % (32-36); MEAN CORPUSCULAR VOLUME 89 fL (79.0-98.0); MONOCYTES # (AUTO) 0.7 K/uL (0.0-1.0); MONOCYTES % (AUTO) 5.8 % (1.7-9.3); NEUTROPHILS # (AUTO) 10.9 K/uL (1.8-7.7); NEUTROPHILS % (AUTO) 86.1 % (40.0-70.0); RED BLOOD CELL COUNT(AUTO) 3.11 MIL/uL (4.2-6.2); RED CELL DISTRIBUTION WIDTH 19.7 % (9.0-15.0); WHITE BLOOD COUNT (AUTO) 12.5 K/uL (4.8-10.8)
[2017-06-02 07:53] LABS: CREATININE 0.46 mg/dL (0.55-1.30); PHOSPHORUS 3.7 mg/dL (2.7-4.5); POTASSIUM 4.2 mmol/L (3.5-5.1)
[2017-06-02] MEDS: PANTOPRAZOLE SODIUM 40 MG/VIAL (PROTONIX) IVP SCH ×2 (08:34→21:52)
[2017-06-02] MEDS: MULTIVITAMINS,THERAPEUTIC 5 ML UDC GT SCH ×2 (08:36→21:00)
[2017-06-02] MEDS: MECLIZINE HCL 25 MG TABLET (ANITVERT) PO SCH ×3 (08:36→21:52)
[2017-06-02] MEDS: ASPIRIN 81 MG TAB.CHEW PO SCH (08:36)
[2017-06-02] MEDS: SUCRALFATE 1 GM TABLET PO SCH ×3 (08:37→21:54)
[2017-06-02] MEDS: ATORVASTATIN 20 MG TABLET PO SCH (08:37)
[2017-06-02] MEDS: METOPROLOL SUCCINATE 50 MG TAB.SR.24H (TOPROL XL) PO SCH ×2 (08:37→21:53)
[2017-06-02] MEDS: LR 1,000 ML IV SCH (08:41)
[2017-06-02 09:13] LABS: ABG TOTAL HEMOGLOBIN 10.2 G/dL (12.0-18.0); BLOOD GAS BASE EXCESS 1.7 mmol/L (-3.0-3.0); BLOOD GAS COHb% 0.3 % (0.5-1.5); BLOOD GAS PH 7.491 (7.350-7.450); BLOOD O2Hb% 96.8 % (94.0-97.0)
[2017-06-02 09:14] LABS: BLOOD GAS HHB 2.7 % (0.0-6.0)
[2017-06-02 11:10] LABS: PLATELET COUNT (AUTO) 720 K/uL (130-430)
[2017-06-02] MEDS ORDERED: HYDROmorphone 1 MG INJ. 1 MG/ML AMPUL IVP PRN (13:30)
[2017-06-02] MEDS ORDERED: HYDROmorphone 2 MG/ML VIAL IVP PRN (13:30)
[2017-06-02] MEDS ORDERED: MEPERIDINE HCL/PF 25 MG/ML DISP.SYRIN IVP PRN ×2 (13:30)
[2017-06-02] MEDS: SOD FERRIC GLUC COMPLEX/SUC 125 MG in NS 100 ML IV SCH (14:28)
[2017-06-02 19:07] LABS: HEMATOCRIT 29.4 % (36-48); HEMOGLOBIN 9.5 g/dL (12.0-16.0); MEAN CORPUSCULAR HEMOGLOBIN 28 pg (27-31); MEAN CORPUSCULAR HGB CONC 32 % (32-36); MEAN CORPUSCULAR VOLUME 87 fL (79.0-98.0); PLATELET COUNT (AUTO) 711 K/uL (130-430); RED BLOOD CELL COUNT(AUTO) 3.39 MIL/uL (4.2-6.2); RED CELL DISTRIBUTION WIDTH 19.3 % (9.0-15.0); WHITE BLOOD COUNT (AUTO) 11.6 K/uL (4.8-10.8)
[2017-06-02 19:34] LABS: ATYPICAL LYMPHOCYTES % 0 % (0-0); BAND % (MANUAL) 2 % (0-6); BASOPHILS % (MANUAL) 0 % (0-2); EOSINOPHILS % (MANUAL) 0 % (0-7); LYMPHOCYTES % (MANUAL) 13 % (20-46); MONOCYTES % (MANUAL) 4 % (0-11)
[2017-06-02] MEDS: TPN CENTRAL 0.0001 ML, SODIUM ACETATE 40 MEQ, POTASSIUM ACETATE 20 MEQ, K PHOS 9 MM, CA... IV SCH ×10 (20:20)
[2017-06-03] VITALS (35 sets, daily range): BP systolic 134–189
[2017-06-03] MEDS: MORPHINE 2 MG/ML INJ. SYRINGE IVP PRN ×5 (00:47→22:44)
[2017-06-03] MEDS: INSULIN REGULAR, HUMAN 100 UNITS/ML, 10 ML VIAL (novoLIN R) SUBCUT PRN ×3 (00:52→18:38)
[2017-06-03] MEDS: IPRATROPIUM BROM 0.5 MG/2.5 ML VIAL.NEB (ATROVENT) INH SCH ×4 (00:53→19:32)
[2017-06-03] MEDS: LEVALBUTEROL HCL 0.63 MG/3 ML VIAL.NEB INH SCH ×4 (00:54→19:33)
[2017-06-03] MEDS: LR 1,000 ML IV SCH (05:28)
[2017-06-03 06:48] LABS: BASOPHILS # (AUTO) 0.2 K/uL (0.0-0.2); BASOPHILS % (AUTO) 1.5 % (0.0-2.0); EOSINOPHILS % (AUTO) 0.2 % (0.0-4.0); HEMATOCRIT 28.4 % (36-48); HEMOGLOBIN 9.4 g/dL (12.0-16.0); LYMPHOCYTES # (AUTO) 0.6 K/uL (1.0-5.5); LYMPHOCYTES % (AUTO) 4.6 % (20.5-51.5); MEAN CORPUSCULAR HEMOGLOBIN 29 pg (27-31); MEAN CORPUSCULAR HGB CONC 33 % (32-36); MEAN CORPUSCULAR VOLUME 87 fL (79.0-98.0); MONOCYTES # (AUTO) 0.5 K/uL (0.0-1.0); MONOCYTES % (AUTO) 4.4 % (1.7-9.3); NEUTROPHILS # (AUTO) 10.8 K/uL (1.8-7.7); NEUTROPHILS % (AUTO) 89.3 % (40.0-70.0); PLATELET COUNT (AUTO) 701 K/uL (130-430); RED BLOOD CELL COUNT(AUTO) 3.25 MIL/uL (4.2-6.2); WHITE BLOOD COUNT (AUTO) 12.1 K/uL (4.8-10.8)
[2017-06-03 06:51] LABS: INR 1.1 (0.8-1.2); PROTHROMBIN TIME 11.7 SECS (9.5-12.5)
[2017-06-03 06:54] LABS: CALCIUM 7.5 mg/dL (8.4-11.0); CREATININE 0.44 mg/dL (0.55-1.30); PHOSPHORUS 3.7 mg/dL (2.7-4.5); POTASSIUM 3.3 mmol/L (3.5-5.1)
[2017-06-03 08:09] LABS: ABG TOTAL HEMOGLOBIN 11.6 G/dL (12.0-18.0); BLOOD GAS BASE EXCESS 3.3 mmol/L (-3.0-3.0); BLOOD GAS COHb% 0.3 % (0.5-1.5); BLOOD GAS HHB 2.9 % (0.0-6.0); BLOOD GAS PH 7.505 (7.350-7.450); BLOOD O2Hb% 96.3 % (94.0-97.0)
[2017-06-03] MEDS: SUCRALFATE 1 GM TABLET PO SCH (08:22)
[2017-06-03] MEDS: ATORVASTATIN 20 MG TABLET PO SCH (08:22)
[2017-06-03] MEDS: ASPIRIN 81 MG TAB.CHEW PO SCH (08:23)
[2017-06-03] MEDS: MECLIZINE HCL 25 MG TABLET (ANITVERT) PO SCH ×3 (08:23→20:47)
[2017-06-03] MEDS: METOPROLOL SUCCINATE 50 MG TAB.SR.24H (TOPROL XL) PO SCH (08:23)
[2017-06-03] MEDS ORDERED: POTASSIUM CHLORIDE 40 MEQ, MAGNESIUM SULFATE 2 GM in 0.45% NS 250 ML IV ONE (08:30)
[2017-06-03] MEDS ORDERED: MORPHINE 4 MG/ML INJ. SYRINGE ONE (08:56)
[2017-06-03] MEDS: MULTIVITAMINS,THERAPEUTIC 5 ML UDC GT SCH ×2 (09:00→20:53)
[2017-06-03] MEDS ORDERED: FUROSEMIDE 20 MG/2 ML VIAL IVP ONE (10:30)
[2017-06-03] MEDS: PANTOPRAZOLE SODIUM 40 MG/VIAL (PROTONIX) IVP SCH ×2 (10:57→20:49)
[2017-06-03] MEDS ORDERED: CEFAZOLIN 1 GM IVPB PREMIX 50 ML IV ONE (11:00)
[2017-06-03] MEDS: SOD FERRIC GLUC COMPLEX/SUC 125 MG in NS 100 ML IV SCH (14:10)
[2017-06-03] MEDS: SUCRALFATE 1 GM TABLET NG SCH ×2 (16:18→22:29)
[2017-06-03] MEDS: HALOPERIDOL LACTATE 5 MG/ML VIAL IVP PRN (16:20)
[2017-06-03] MEDS: POTASSIUM CHLORIDE IV SCH ×11 (18:40)
[2017-06-03] MEDS: SODIUM ACETATE IV SCH ×11 (18:40)
[2017-06-03] MEDS: [UNRECOGNIZED DRUG - OTHER] IV SCH ×11 (18:40)
[2017-06-03] MEDS: TPN CENTRAL IV SCH ×11 (18:40)
[2017-06-03] MEDS: METOPROLOL TARTRATE 50 MG TABLET PO SCH (20:48)
[2017-06-03] MEDS: POTASSIUM CHLORIDE 20 MEQ/PKT PACKET NG SCH (20:48)
[2017-06-03 20:55] LABS: CORTISOL, URINARY FREE 206 ug/L (Undefined)
[2017-06-04] VITALS (33 sets, daily range): BP systolic 121–188
[2017-06-04] MEDS: LEVALBUTEROL HCL 0.63 MG/3 ML VIAL.NEB INH SCH ×4 (00:47→19:22)
[2017-06-04] MEDS: IPRATROPIUM BROM 0.5 MG/2.5 ML VIAL.NEB (ATROVENT) INH SCH ×4 (00:47→19:21)
[2017-06-04] MEDS: MORPHINE 2 MG/ML INJ. SYRINGE IVP PRN ×6 (01:29→23:08)
[2017-06-04] MEDS: SUCRALFATE 1 GM TABLET NG SCH ×4 (03:59→21:07)
[2017-06-04] MEDS: LR 1,000 ML IV SCH ×2 (04:00→23:42)
[2017-06-04 06:27] LABS: BASOPHILS # (AUTO) 0.1 K/uL (0.0-0.2); LYMPHOCYTES # (AUTO) 0.7 K/uL (1.0-5.5); MEAN CORPUSCULAR VOLUME 89 fL (79.0-98.0); MONOCYTES # (AUTO) 0.5 K/uL (0.0-1.0); NEUTROPHILS # (AUTO) 11.8 K/uL (1.8-7.7); WHITE BLOOD COUNT (AUTO) 13.1 K/uL (4.8-10.8)
[2017-06-04 06:47] LABS: CALCIUM 7.9 mg/dL (8.4-11.0); CREATININE 0.49 mg/dL (0.55-1.30); POTASSIUM 3.6 mmol/L (3.5-5.1)
[2017-06-04 06:49] LABS: BASOPHILS % (AUTO) 0.5 % (0.0-2.0); EOSINOPHILS % (AUTO) 0.2 % (0.0-4.0); HEMATOCRIT 30.1 % (36-48); HEMOGLOBIN 9.8 g/dL (12.0-16.0); INR 1.1 (0.8-1.2); LYMPHOCYTES % (AUTO) 5.5 % (20.5-51.5); MEAN CORPUSCULAR HEMOGLOBIN 29 pg (27-31); MEAN CORPUSCULAR HGB CONC 33 % (32-36); MONOCYTES % (AUTO) 3.7 % (1.7-9.3); NEUTROPHILS % (AUTO) 90.1 % (40.0-70.0); PLATELET COUNT (AUTO) 724 K/uL (130-430); PROTHROMBIN TIME 11.9 SECS (9.5-12.5); RED BLOOD CELL COUNT(AUTO) 3.39 MIL/uL (4.2-6.2); RED CELL DISTRIBUTION WIDTH 19.6 % (9.0-15.0)
[2017-06-04] MEDS ORDERED: LEVALBUTEROL HCL 0.63 MG/3 ML VIAL.NEB INH ONE (07:38)
[2017-06-04] MEDS ORDERED: MEPERIDINE HCL/PF 50 MG/ML AMP ONE (08:51)
[2017-06-04] MEDS ORDERED: MIDAZOLAM HCL 5 MG/5 ML VIAL ONE (08:51)
[2017-06-04] MEDS: ATORVASTATIN 20 MG TABLET PO SCH (09:00)
[2017-06-04] MEDS: POTASSIUM CHLORIDE 20 MEQ/PKT PACKET NG SCH ×2 (09:00→21:05)
[2017-06-04] MEDS: MULTIVITAMINS,THERAPEUTIC 5 ML UDC GT SCH ×2 (09:00→21:00)
[2017-06-04] MEDS ORDERED: CEFAZOLIN 1 GM IVPB PREMIX 50 ML IV ONE (09:00)
[2017-06-04] MEDS: MECLIZINE HCL 25 MG TABLET (ANITVERT) PO SCH ×3 (09:00→21:06)
[2017-06-04] MEDS: ASPIRIN 81 MG TAB.CHEW PO SCH (09:00)
[2017-06-04] MEDS: METOPROLOL TARTRATE 50 MG TABLET PO SCH ×2 (09:00→21:06)
[2017-06-04] MEDS: PANTOPRAZOLE SODIUM 40 MG/VIAL (PROTONIX) IVP SCH ×2 (10:25→21:05)
[2017-06-04] MEDS: [UNRECOGNIZED DRUG - OTHER] IV SCH ×11 (18:00)
[2017-06-04] MEDS: SODIUM ACETATE IV SCH ×11 (18:00)
[2017-06-04] MEDS: TPN CENTRAL IV SCH ×11 (18:00)
[2017-06-04] MEDS: POTASSIUM CHLORIDE IV SCH ×11 (18:00)
[2017-06-04] MEDS: INSULIN REGULAR, HUMAN 100 UNITS/ML, 10 ML VIAL (novoLIN R) SUBCUT PRN (18:08)
[2017-06-04] MEDS: PROPOFOL DRIP 100 ML IV PRN (20:05)
[2017-06-04] MEDS: ONDANSETRON HCL 4 MG/2 ML VIAL IVP PRN (23:25)
[2017-06-05] VITALS (26 sets, daily range): BP systolic 122–167
[2017-06-05] MEDS: POTASSIUM CHLORIDE IV SCH ×11 (00:13)
[2017-06-05] MEDS: [UNRECOGNIZED DRUG - OTHER] IV SCH ×11 (00:13)
[2017-06-05] MEDS: TPN CENTRAL IV SCH ×11 (00:13)
[2017-06-05] MEDS: SODIUM ACETATE IV SCH ×11 (00:13)
[2017-06-05] MEDS ORDERED: ENOXAPARIN SODIUM 40 MG/0.4 ML SYRINGE SUBCUT ONE (00:30)
[2017-06-05] MEDS ORDERED: METOCLOPRAMIDE HCL 10 MG/2 ML VIAL IVP ONE (00:30)
[2017-06-05] MEDS: LEVALBUTEROL HCL 0.63 MG/3 ML VIAL.NEB INH SCH ×4 (01:44→20:34)
[2017-06-05] MEDS: IPRATROPIUM BROM 0.5 MG/2.5 ML VIAL.NEB (ATROVENT) INH SCH ×4 (01:44→20:34)
[2017-06-05] MEDS: SUCRALFATE 1 GM TABLET NG SCH ×4 (03:00→20:46)
[2017-06-05 04:58] LABS: BLOOD, URINE 3+ (NEGATIVE); CLARITY/URINE SL CLOUDY (CLEAR); COLOR,URINE AMBER (YELLOW); GLUCOSE,URINE NEGATIVE (NEGATIVE); KETONES,URINE TRACE (NEGATIVE); LEUKOCYTE ESTERASE ,URINE TRACE (NEGATIVE); NITRITE, URINE POSITIVE (NEGATIVE); PH,URINE 5.5 (5.0-8.0); PROTEIN URINE 2+ (NEGATIVE)
[2017-06-05] MEDS: MORPHINE 2 MG/ML INJ. SYRINGE IVP PRN ×2 (05:10→14:16)
[2017-06-05 05:19] LABS: BACTERIA,URINE MANY /HPF (None Seen); BILIRUBIN,URINE 1+ (NEGATIVE); RBC,URINE >100 /HPF (0-3)
[2017-06-05 05:20] LABS: CALCIUM OXALATE CRYSTALS,UR 0-10 /HPF (None Seen); MUCUS,URINE None Seen /LPF (None Seen)
[2017-06-05] MEDS: INSULIN REGULAR, HUMAN 100 UNITS/ML, 10 ML VIAL (novoLIN R) SUBCUT PRN (05:35)
[2017-06-05 06:44] LABS: BASOPHILS # (AUTO) 0.1 K/uL (0.0-0.2); BASOPHILS % (AUTO) 0.6 % (0.0-2.0); EOSINOPHILS % (AUTO) 0.4 % (0.0-4.0); HEMATOCRIT 28.6 % (36-48); HEMOGLOBIN 9.3 g/dL (12.0-16.0); LYMPHOCYTES # (AUTO) 0.8 K/uL (1.0-5.5); LYMPHOCYTES % (AUTO) 7.3 % (20.5-51.5); MEAN CORPUSCULAR HEMOGLOBIN 29 pg (27-31); MEAN CORPUSCULAR HGB CONC 33 % (32-36); MEAN CORPUSCULAR VOLUME 89 fL (79.0-98.0); MONOCYTES # (AUTO) 0.6 K/uL (0.0-1.0); MONOCYTES % (AUTO) 5.2 % (1.7-9.3); NEUTROPHILS # (AUTO) 9.6 K/uL (1.8-7.7); NEUTROPHILS % (AUTO) 86.5 % (40.0-70.0); PLATELET COUNT (AUTO) 640 K/uL (130-430); RED BLOOD CELL COUNT(AUTO) 3.22 MIL/uL (4.2-6.2); RED CELL DISTRIBUTION WIDTH 19.6 % (9.0-15.0); WHITE BLOOD COUNT (AUTO) 11.1 K/uL (4.8-10.8)
[2017-06-05] MEDS: METOCLOPRAMIDE HCL 10 MG/2 ML VIAL IVP SCH ×3 (06:50→20:45)
[2017-06-05 06:59] LABS: CALCIUM 8.2 mg/dL (8.4-11.0); CREATININE 0.44 mg/dL (0.55-1.30)
[2017-06-05] MEDS: PANTOPRAZOLE SODIUM 40 MG/VIAL (PROTONIX) IVP SCH ×2 (09:12→20:45)
[2017-06-05] MEDS: ENOXAPARIN SODIUM 40 MG/0.4 ML SYRINGE SUBCUT SCH ×2 (09:22→20:45)
[2017-06-05] MEDS: ONDANSETRON HCL 4 MG/2 ML VIAL IVP PRN (09:25)
[2017-06-05] MEDS: MECLIZINE HCL 25 MG TABLET (ANITVERT) PO SCH ×3 (09:26→20:46)
[2017-06-05] MEDS: HALOPERIDOL LACTATE 5 MG/ML VIAL IVP PRN (09:39)
[2017-06-05] MEDS: METOPROLOL TARTRATE 50 MG TABLET PO SCH ×2 (09:43→20:47)
[2017-06-05] MEDS: ASPIRIN 81 MG TAB.CHEW PO SCH (09:44)
[2017-06-05] MEDS: ATORVASTATIN 20 MG TABLET PO SCH (09:44)
[2017-06-05] MEDS: POTASSIUM CHLORIDE 20 MEQ/PKT PACKET NG SCH ×2 (09:45→20:46)
[2017-06-05] MEDS: MULTIVITAMINS,THERAPEUTIC 5 ML UDC GT SCH (09:46)
[2017-06-05] MEDS: LR 1,000 ML IV SCH (10:43)
== END 2017-06-05 21:30 | DRG 5 ==
LOC: SED 10:17 → STU 12:56 → SIC 05-17 12:37 → STU 05-22 11:37 → SIC 05-25 16:59
PROVIDERS: ADMIT Internal Medicine; ATTEND Internal Medicine
PROC: 0WBC4ZX Excision of Mediastinum, Percutaneous Endoscopic Approach, Diagnostic (ICD-10-PCS; 2017-05-17)
PROC: 0BJ08ZZ Inspection of Tracheobronchial Tree, Via Natural or Artificial Opening Endoscopic (ICD-10-PCS; 2017-05-17)
PROC: 0W9B40Z Drainage of Left Pleural Cavity with Drainage Device, Percutaneous Endoscopic Approach (ICD-10-PCS; 2017-05-17)
PROC: 02HV33Z Insertion of Infusion Device into Superior Vena Cava, Percutaneous Approach (ICD-10-PCS; 2017-05-21)
PROC: B548ZZA Ultrasonography of Superior Vena Cava, Guidance (ICD-10-PCS; 2017-05-21)
PROC: 3E0436Z Introduction of Nutritional Substance into Central Vein, Percutaneous Approach (ICD-10-PCS; 2017-05-21)
PROC: 0BH17EZ Insertion of Endotracheal Airway into Trachea, Via Natural or Artificial Opening (ICD-10-PCS; 2017-05-25)
PROC: 0DB58ZX Excision of Esophagus, Via Natural or Artificial Opening Endoscopic, Diagnostic (ICD-10-PCS; 2017-05-25)
PROC: 02HV33Z Insertion of Infusion Device into Superior Vena Cava, Percutaneous Approach (ICD-10-PCS; 2017-05-25)
PROC: B548ZZA Ultrasonography of Superior Vena Cava, Guidance (ICD-10-PCS; 2017-05-25)
PROC: 30233N1 Transfusion of Nonautologous Red Blood Cells into Peripheral Vein, Percutaneous Approach (ICD-10-PCS; 2017-05-25)
PROC: 5A1955Z Respiratory Ventilation, Greater than 96 Consecutive Hours (ICD-10-PCS; principal; 2017-05-25 14:15)
PROC: 30233N1 Transfusion of Nonautologous Red Blood Cells into Peripheral Vein, Percutaneous Approach (ICD-10-PCS; 2017-05-27)
PROC: 30233N1 Transfusion of Nonautologous Red Blood Cells into Peripheral Vein, Percutaneous Approach (ICD-10-PCS; 2017-05-29)
PROC: 0B110F4 Bypass Trachea to Cutaneous with Tracheostomy Device, Open Approach (ICD-10-PCS; 2017-06-02)
PROC: 0DH63UZ Insertion of Feeding Device into Stomach, Percutaneous Approach (ICD-10-PCS; 2017-06-04)
DX: A41.9 Sepsis, unspecified organism (principal); R65.21 Severe sepsis with septic shock; E43 Unspecified severe protein-calorie malnutrition; J69.0 Pneumonitis due to inhalation of food and vomit; K22.11 Ulcer of esophagus with bleeding; E27.8 Other specified disorders of adrenal gland; D62 Acute posthemorrhagic anemia; I48.0 Paroxysmal atrial fibrillation; I47.1 Supraventricular tachycardia; F03.90 Unspecified dementia, unspecified severity, without behavioral disturbance, psychotic disturbance, mood disturbance, and anxiety; C34.92 Malignant neoplasm of unspecified part of left bronchus or lung; T85.898A Other specified complication of other internal prosthetic devices, implants and grafts, initial encounter; Y84.8 Other medical procedures as the cause of abnormal reaction of the patient, or of later complication, without mention of misadventure at the time of the procedure; J44.1 Chronic obstructive pulmonary disease with (acute) exacerbation; I70.0 Atherosclerosis of aorta; E86.0 Dehydration; D47.3 Essential (hemorrhagic) thrombocythemia; I10 Essential (primary) hypertension; I25.10 Atherosclerotic heart disease of native coronary artery without angina pectoris; R13.10 Dysphagia, unspecified; K29.70 Gastritis, unspecified, without bleeding; J96.00 Acute respiratory failure, unspecified whether with hypoxia or hypercapnia; F10.10 Alcohol abuse, uncomplicated; Y90.9 Presence of alcohol in blood, level not specified; R41.0 Disorientation, unspecified; F17.210 Nicotine dependence, cigarettes, uncomplicated; E87.5 Hyperkalemia; E83.42 Hypomagnesemia; K21.9 Gastro-esophageal reflux disease without esophagitis; N39.0 Urinary tract infection, site not specified; E87.6 Hypokalemia; Z79.899 Other long term (current) drug therapy; Z90.49 Acquired absence of other specified parts of digestive tract; Z90.710 Acquired absence of both cervix and uterus; Y92.89 Other specified places as the place of occurrence of the external cause; Z68.1 Body mass index [BMI] 19.9 or less, adult
CPT/HCPCS: 36415; 36600; 43246; 70450-TC; 70460-TC; 71010; 71250-TC; 71260-TC; 71275; 74000-TC; 76700-TC; 80048; 80053; 81000-TC; 82088; 82150-TC; 82271-TC; 82384; 82530; 82575-TC; 82728; 82803-TC; 82962; 83540-TC; 83550-TC; 83690-TC; 83735-TC; 83835; 83880; 84100-TC; 84244; 84478-TC; 84484; 85007; 85025; 85027; 85610-TC; 85730-TC; 86886; 86900; 86901; 86920; 87040-TC; 87070-TC; 87075-TC; 87081; 87086; 87101; 87116; 87186-TC; 87205-TC; 88108; 88305; 88307; 88341; 88342; 93005; 93306; 93970; 94002; 94003; 94640; 96361; 96374; 96375; 99285; C1751; C1769; C9113; J0282; J0330; J0456; J0610; J0690; J0696; J1160; J1170; J1630; J1650; J1815; J1940; J2060; J2175; J2250; J2270; J2405; J2543; J2704; J2710; J2765; J2916; J3010; J3475; J3480; J3490; J7030; J7040; J7042; J7050; J7060; J7120; J7131; J8597; P9021; Q9963; Q9967